=== PATIENT | male | born 1940 | race Caucasian/White ===

== ENCOUNTER → 2018-03-26 11:16 | Outpatient (CLI) | payer OTHER, SELFPAY ==
--- NOTE | 2018-03-26 | DI.RAD.S_ITS ---
PROCEDURE: XR CHEST 2V INDICATIONS: DYSPNEA TECHNIQUE: 2 views of the chest were acquired. COMPARISON: [facility], , CHEST 2 VIEW, 07/13/2008, 11:32. [facility], , L-SPINE 2-3 VIEWS, 06/20/2017, 11:29. FINDINGS: Surgical changes and devices: None. Lungs and pleura: Left basilar densities likely scars or atelectasis. Lungs are otherwise clear. No pleural effusions or pneumothorax. Mediastinum: Mediastinal contours are normal. Heart size is normal. Bones and chest wall: No suspicious bony abnormalities. Soft tissues appear unremarkable. Degenerative changes in lumbar spine. Bilateral rotator cuff tendon anchors are noted. IMPRESSION: Left basilar scars or atelectasis. Dictated by: Alia Estrada M.D. on 03/26/2018 at 12:54 Approved by: Alia Estrada M.D. on 03/26/2018 at 12:55
[2018-03-26 12:17] LABS: Add Manual Diff / Slide Review NO; Basophils Percent Auto 0.5 % (0-2); Eosinophils Percent Auto 1.4 % (2-4); Hematocrit 43.8 % (41-53); Lymphocytes Percent Auto 19.1 % (25-40); Mean Corpuscular HGB Conc 34.2 % (30-36); Mean Corpuscular Volume 93.6 fL (80-100); Monocytes Percent Auto 9.1 % (3-14); Neutrophils Absolute Auto 7300 /uL (3000-5900); Neutrophils Percent Auto 69.9 % (50-75); Platelet Count 272 X10^3/uL (150-400); Red Blood Cell Count 4.68 X10^6/uL (4.5-5.9); Red Cell Distribution Width 13.7 % (11.6-14.8); White Blood Cell Count 10.5 X10^3/uL (4.5-11.0)
[2018-03-26 12:36] LABS: B Type Natriuretic Peptide < 29.4 (<100)
[2018-03-26 13:16] LABS: TSH w/ Reflex to FT4 1.35 uIU/mL (0.47-4.68)
== END ==
PROVIDERS: Visit Provider Internal Medicine
DX: R06.09 Other forms of dyspnea (principal)
CPT/HCPCS: 36415; 71046; 83880; 84443; 85025

== ENCOUNTER → 2018-04-04 10:04 | Outpatient (CLI) | payer OTHER, SELFPAY ==
--- NOTE | 2018-04-04 | DI.CT.S_ITS ---
PROCEDURE: CT CHEST HIGH RESOLUTION INDICATIONS: DYSPNEA FOR ONE YEAR TECHNIQUE: Noncontrast 1.0 and 5.0 mm thick contiguous axial sections from the pulmonary apex to the posterior costophrenic angles, with 7 mm thick coronal and sagittal MIP reformats. 1 mm thick dynamic expiratory images acquired through the upper, mid, and lower lungs. 1.0 mm thick axial sections acquired from the jaclyn to the posterior costophrenic angles in the prone end-inspiration position. For radiation dose reduction, the following was used: automated exposure control, adjustment of mA and/or kV according to patient size. COMPARISON: None. FINDINGS: Image quality: Excellent. No acute consolidation. There is scattered atelectasis and/or scarring No pleural effusions or pneumothorax. No honeycombing is seen. There are calcified pleural plaques bilaterally Central airways appear grossly patent. Heart size is normal Coronary artery calcifications are present. Thoracic aorta is normal in size and great vessels are grossly unremarkable. Thyroid is grossly unremarkable, except for a nonspecific 3 mm right lobe calcification No pathologically enlarged mediastinal lymph nodes. Nonspecific paratracheal calcified lymph nodes No hilar lymphadenopathy seen by size criteria. Axillary lymph nodes appear within normal limits bilaterally Thoracic aorta is normal in size and great vessels are grossly unremarkable. Visualized upper abdominal solid organs and bowel loops appear normal except there may be cirrhotic contour of the liver. Please correlate with LFTs Bones appear intact. No suspicious bone lesion. 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 Elsewhere, scattered mild atelectasis and scarring. No evidence of honeycombing seen. Coronary artery disease. Dictated by: Adrian London M.D. on 04/04/2018 at 11:48 Approved by: Adrian London M.D. on 04/04/2018 at 11:57
== END ==
PROVIDERS: Visit Provider Internal Medicine
DX: J98.4 Other disorders of lung (principal); R06.00 Dyspnea, unspecified; I25.10 Atherosclerotic heart disease of native coronary artery without angina pectoris
CPT/HCPCS: 71250

== ENCOUNTER → 2018-04-05 10:41 | Outpatient (CLI) | payer OTHER, SELFPAY ==
--- NOTE | 2018-04-05 | DI.ECHO.S_ITS ---
[facility] +---------+ : : [address] : : : : [place] : : : : [id number] : : : : Phone: [phone]+ Echocardiogram Report + + :Name: KRZYSZTOF BARCENAS Study Date: 04/05/2018 Height: 69 in : :[facility] Exam Location: IS Weight: 212 lb : : Gender: Male BSA: 2.1 m2 : :: 1940 Age: 77 yrs BP: 130/70 mmHg: :Reason For Study: CHF : :Ordering Physician: Dr. Thomas : :Vamshi Performed By: Bonita Leos : :Referring: CHRIS SEGOVIA : + + Interpretation Summary The left ventricle is normal in size. The ejection fraction is estimated to be 70-75%. The left ventricle is hyperdynamic. There is no echo evidence for significant left ventricular outflow tract obstruction. The right ventricle is grossly normal size. The right ventricular systolic function is normal. Heavy calcification of posterior mitral annulus. Restricted PMVL. The mitral valve mean gradient is 3 mmHg. There is mild mitral stenosis. Procedure: A two-dimensional transthoracic echocardiogram with color flow and Doppler was performed. The study quality was technically adequate. There is no prior echocardiogram noted for this patient. The patient was in normal sinus rhythm during the exam. Left Ventricle: The left ventricle is normal in size. There is normal left ventricular wall thickness. There is no echo evidence for significant left ventricular outflow tract obstruction. There is no thrombus. The ejection fraction is estimated to be 70-75%. The left ventricle is hyperdynamic. There are no focal wall motion abnormalities. Diastolic function could not be accurately assessed due to confounding valvular disease. Right Ventricle: The right ventricle is grossly normal size. The right ventricular systolic function is normal. Atria: The left atrium is moderately dilated. The right atrium is mildly dilated. A prominent eustachian valve is noted. There is no Doppler evidence for an interatrial shunt. Mitral Valve: Heavy calcification of posterior mitral annulus. restricted PMVL. Mild MS by pressure half time (135ms) and MVA (2.0cm^2). The mitral valve mean gradient is 3 mmHg. There is mild mitral stenosis. There is trace mitral regurgitation. Aortic Valve: The aortic valve is trileaflet. There is mild aortic valve sclerosis. The aortic valve opens well. No aortic regurgitation is present. Tricuspid Valve: The tricuspid valve is normal. Pulmonary artery pressures cannot be estimated because of the lack of a measurable TR jet velocity. There is trace tricuspid regurgitation. Pulmonic Valve: The pulmonic valve is not well seen, but is grossly normal. There is trace pulmonic regurgitation. Great Vessels: The aortic root is normal size. The ascending aorta is at the upper limits of normal in size. The aortic arch could not be visualized. The pulmonary is not well visualized. The IVC is of normal diameter and collapses greater than 50% with a sniff. This suggests a low right atrial pressure of 3 mm Hg. Pericardium/ Pleura There is no pericardial effusion. There is no pleural effusion. MMode/2D Measurements & Calculations LVIDd: 4.5 cm LVOT diam: 2.1 cm LVIDs: 3.0 cm Ao root diam: 3.7 cm FS: 32.5 % asc Aorta Diam: 3.7 cm EPSS: 0.40 cm IVSd: 0.75 cm LVPWd: 0.94 cm LV cristina. diameter/BSA (cm/m^2): 2.1 LV sys. diameter/BSA (cm/m^2): 1.4 LA A2 area: 26.7 cm2 RA long axis: 5.3 cm LA A4 area: 26.4 cm2 RA area: 17.0 cm2 LA length (vol): 6.1 cm RA vol: 46.0 ml LA vol: 97.4 ml RA : 21.7 ml/m2 LA vol index: 46.0 ml/m2 IVC diam: 1.6 cm RVD1 (basal): 4.3 cm RVD2 (mid): 2.6 cm TAPSE: 2.2 cm Doppler Measurements & Calculations Ao V2 max: 118.4 cm/sec LVOT Max Luis: 86.8 cm/sec Ao V2 mean: 79.3 cm/sec LV V1 max P.0 mmHg Ao max P.6 mmHg LV V1 VTI: 14.5 cm Ao mean P.9 mmHg DELANEY(I,D): 3.2 cm2 Ao V2 VTI: 16.1 cm DELANEY(V,D): 2.6 cm2 sev ratio: 0.90 DELANEY indexed to BSA (cm^2/m^2): 1.5 MV E max luis: 68.2 cm/sec PA V2 max: 81.2 cm/sec MV A max luis: 130.7 cm/sec PA V2 mean: 54.2 cm/sec MV E/A: 0.52 PA mean P.4 mmHg Med Peak E' Luis: 3.8 cm/sec PA pr(Accel): 34.1 mmHg E/E' med: 18.0 Lat Peak E' Luis: 4.9 cm/sec E/E' lat: 13.9 E/e' average: 15.9 MV dec time: 0.43 sec MVA(VTI): 2.0 cm2 MV V2 mean: 81.3 cm/sec MV mean P.1 mmHg MV V2 VTI: 25.1 cm Reading Physician:MAYNOR
== END ==
PROVIDERS: Visit Provider Internal Medicine
DX: I08.0 Rheumatic disorders of both mitral and aortic valves (principal); I50.9 Heart failure, unspecified
CPT/HCPCS: 93306

== ENCOUNTER → 2018-04-09 11:30 | Outpatient (CLI) | payer OTHER, SELFPAY ==
--- NOTE | 2018-04-12 07:57 | PM.PFT.1 ---
Pulmonary Function Test Referral & Results Date Patient Seen: 04/09/18 Requesting provider: William Bonds Indication: Asbestos exposure, restrictive lung disease, dyspnea Results: The spirometry demonstrates an FVC of 3.80 L which is 82% of predicted. The FEV1 was measured at 3.16 L which is 94% of predicted. The FEV1/FVC ratio was 83 which is 115% of predicted. Following the administration of bronchodilator there was no appreciable change. Lung volumes show an SVC of 4.41 L which is 90% of predicted. The diffusing capacity was measured at 22.76 which is 62% go to end of sentence my no hemoglobin of predicted. The maximum voluntary ventilation was normal Interpretation: This study demonstrates probably normal spirometry. The maybe a very slight reduction in lung volumes. There is a much more significant reduction in diffusing capacity suggesting significant disease at the capillary alveolar level.
== END ==
PROVIDERS: PCP Internal Medicine; Visit Provider Internal Medicine
DX: R06.00 Dyspnea, unspecified (principal); J98.8 Other specified respiratory disorders; Z77.090 Contact with and (suspected) exposure to asbestos
CPT/HCPCS: 94010; 94060; 94726; 94729

== ENCOUNTER → 2018-12-31 13:43 | Outpatient (CLI) | payer OTHER, SELFPAY ==
--- NOTE | 2018-12-31 13:54 | DI.CT.S_ITS ---
PROCEDURE: CT UE LT WO CON INDICATIONS: PAIN IN LEFT SHOULDER TECHNIQUE: Noncontrast 1-1.5 mm thick sections acquired from the acromioclavicular joint to the inferior scapula, with coronal and sagittal reformatting. COMPARISON: [facility] Outside Film, RG, SHOULDER MIN 2VW (LT), 10/30/2018, 14:33. FINDINGS: Image quality: Excellent. Bones: Severe glenohumeral degenerative joint disease, with chronic subchondral sclerosis, spurring and deformity. There are scattered calcific foci which could represent loose bodies/debris or dystrophic calcifications. Spondylitic changes seen in the visualized spine. No acute fracture identified. Severe AC joint degeneration also with periarticular dystrophic calcification. High riding appearance of the humeral head suggests chronic rotator cuff tear. Soft tissues: Incidentally noted left lung calcified pleural plaques. Surgical soft tissue anchors projecting in the humeral head. IMPRESSION: Left shoulder CT for preoperative planning purposes. Severe left shoulder degenerative joint disease as detailed above. 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 Dictated by: Adrian London M.D. on 12/31/2018 at 16:14 Approved by: Adrian London M.D. on 12/31/2018 at 16:18
== END ==
PROVIDERS: PCP Internal Medicine; Visit Provider Orthopaedic Surgery
DX: M25.512 Pain in left shoulder (principal); M19.012 Primary osteoarthritis, left shoulder; J92.9 Pleural plaque without asbestos
CPT/HCPCS: 73200

== ENCOUNTER → 2019-09-05 13:24 | Outpatient (CLI) | payer OTHER, SELFPAY ==
[2019-09-05 14:25] LABS: Add Manual Diff / Slide Review NO; Basophils Absolute Auto 0 /uL (0-100); Basophils Percent Auto 0.4 % (0-2); Eosinophils Absolute Auto 200 /uL (0-450); Eosinophils Percent Auto 1.8 % (2-4); Hematocrit 42.3 % (41-53); Hemoglobin 14.1 g/dL (13.5-17.5); Lymphocytes Absolute Auto 1900 /uL (1100-4500); Lymphocytes Percent Auto 16.6 % (25-40); Mean Corpuscular HGB Conc 33.4 % (30-36); Mean Corpuscular Hemoglobin 31.1 PG (26-34); Monocytes Absolute Auto 800 /uL (0-900); Monocytes Percent Auto 7.4 % (3-14); Neutrophils Absolute Auto 8200 /uL (1500-7000); Neutrophils Percent Auto 73.8 % (50-75); Platelet Count 246 X10^3/uL (150-400); Red Blood Cell Count 4.55 X10^6/uL (4.5-5.9); Red Cell Distribution Width 14.2 % (11.6-14.8); White Blood Cell Count 11.2 X10^3/uL (4.5-11.0)
[2019-09-05 14:47] LABS: Alanine Aminotransferase 17 IU/L (<50); Albumin 4.4 g/dL (3.5-5.0); Albumin Globulin Ratio 1.6 (1.0-2.8); Alkaline Phosphatase 76 U/L (38-126); Aspartate Aminotransferase 34 IU/L (17-59); BUN Creatinine Ratio 31.1 (6-22); Bilirubin Total 0.5 mg/dL (0.2-1.3); Blood Urea Nitrogen 28 mg/dL (9-20); Calcium 10.2 mg/dL (8.4-10.2); Carbon Dioxide 26 mmol/L (22-32); Chloride 105 mmol/L (98-107); Estimated Glomerular Filt Rate > 60.0 mL/min (>60); Globulin 2.8 g/dL (1.7-4.1); Glucose 108 mg/dL (80-110); HEMOLYSIS < 15 (0-50); Potassium 4.2 mmol/L (3.4-5.1); Sodium 140 mmol/L (137-145); Total Protein 7.2 g/dL (6.3-8.2)
[2019-09-05 14:48] LABS: Lithium < 0.2 mmol/L (0.6-1.2)
== END ==
PROVIDERS: PCP Internal Medicine; Referring Provider Internal Medicine; Visit Provider Internal Medicine
DX: M19.012 Primary osteoarthritis, left shoulder (principal); J61 Pneumoconiosis due to asbestos and other mineral fibers; F32.9 Major depressive disorder, single episode, unspecified
CPT/HCPCS: 36415; 80053; 80178; 85025

== ENCOUNTER → 2019-09-12 14:02 | Outpatient (CLI) | payer OTHER, SELFPAY ==
--- NOTE | 2019-09-12 14:04 | DI.RAD.S_ITS ---
PROCEDURE: XR KNEE RT 3V INDICATIONS: right knee pain TECHNIQUE: 3 views of the knee were acquired. COMPARISON: [facility], , KNEE 3V RIGHT, 12/13/2015, 14:46. FINDINGS: Bones: No fractures or dislocations. No suspicious bony lesions. Soft tissues: Chondrocalcinosis is present. Moderate narrowing of the medial joint space. Large joint effusion. IMPRESSION: Moderate right knee joint degeneration, which has progressed since 12/13/15 Large joint effusion Chondrocalcinosis Dictated by: Adrian London M.D. on 09/12/2019 at 15:55 Approved by: Adrian London M.D. on 09/12/2019 at 15:57
== END ==
PROVIDERS: PCP Internal Medicine; Referring Provider Physical Medicine & Rehabilitation; Visit Provider Physical Medicine & Rehabilitation
DX: M17.11 Unilateral primary osteoarthritis, right knee (principal); M25.461 Effusion, right knee; M11.261 Other chondrocalcinosis, right knee
CPT/HCPCS: 73562

== ENCOUNTER → 2019-11-10 13:39 | Outpatient (CLI) | payer OTHER, SELFPAY ==
--- NOTE | 2019-11-10 13:42 | DI.RAD.S_ITS ---
PROCEDURE: XR LUMBAR SPINE MIN 4V INDICATIONS: Right lower extremity pain status post lumbar fusion TECHNIQUE: 5 views of the lumbar spine were acquired. COMPARISON: [facility], , L-SPINE 2-3 VIEWS, 06/20/2017, 11:29. FINDINGS: Bones: 5 nonrib-bearing vertebrae are present. There is posterior fusion L4-5. Hardware is intact. There is grade 1/2 anterior listhesis of L4 on L5, unchanged. Severe multilevel disc and foraminal narrowing is present throughout the lumbar spine with severe foraminal narrowing from L3-4 through L5-S1. Significant anterior osteophytes are present most notable at L2-3.. No vertebral body compression fractures. No suspicious bony lesions. Soft tissues: Overlying bowel gas pattern is normal. No suspicious soft tissue calcifications. Oblique images: No pars defects. IMPRESSION: Unchanged improved lobe L4-5 fusion with significant multilevel degenerative change. Dictated by: Valerie Garrett M.D. on 11/10/2019 at 16:36 Approved by: Valerie Garrett M.D. on 11/10/2019 at 16:37
== END ==
PROVIDERS: PCP Internal Medicine; Referring Provider Physical Medicine & Rehabilitation; Visit Provider Physical Medicine & Rehabilitation
DX: M79.661 Pain in right lower leg (principal); M48.061 Spinal stenosis, lumbar region without neurogenic claudication; M48.07 Spinal stenosis, lumbosacral region; M17.11 Unilateral primary osteoarthritis, right knee; Z98.1 Arthrodesis status
CPT/HCPCS: 72110; 99213

== ENCOUNTER → 2020-07-17 12:03 | Outpatient (CLI) | payer OTHER, SELFPAY | PROVIDERS: PCP Internal Medicine; Visit Provider Physician Assistant | DX: L03.031 Cellulitis of right toe (principal) | CPT/HCPCS: 87070; 87077; 87147; 87186; 87205 ==

== ENCOUNTER → 2020-07-20 14:50 | Outpatient (ROUT) | payer OTHER, SELFPAY ==
[2020-07-20 15:15] LABS: Add Manual Diff / Slide Review NO; Basophils Absolute Auto 100 /uL (0-100); Basophils Percent Auto 0.8 % (0-2); Eosinophils Absolute Auto 300 /uL (0-450); Eosinophils Percent Auto 3.1 % (2-4); Hematocrit 42.3 % (41-53); Hemoglobin 14.1 g/dL (13.5-17.5); Lymphocytes Absolute Auto 2000 /uL (1100-4500); Mean Corpuscular HGB Conc 33.4 % (30-36); Mean Corpuscular Hemoglobin 31.7 PG (26-34); Monocytes Absolute Auto 800 /uL (0-900); Monocytes Percent Auto 8.6 % (3-14); Neutrophils Absolute Auto 6100 /uL (1500-7000); Neutrophils Percent Auto 65.5 % (50-75); Platelet Count 288 X10^3/uL (150-400); Red Blood Cell Count 4.45 X10^6/uL (4.5-5.9); Red Cell Distribution Width 14.4 % (11.6-14.8); White Blood Cell Count 9.3 X10^3/uL (4.5-11.0)
[2020-07-20 15:26] LABS: Lithium 0.3 mmol/L (0.6-1.2)
[2020-07-20 15:31] LABS: Alanine Aminotransferase 18 IU/L (<50); Albumin 4.3 g/dL (3.5-5.0); Albumin Globulin Ratio 1.7 (1.0-2.8); Alkaline Phosphatase 74 U/L (38-126); Aspartate Aminotransferase 31 IU/L (17-59); BUN Creatinine Ratio 31.3 (6-22); Bilirubin Total 0.7 mg/dL (0.2-1.3); Blood Urea Nitrogen 26 mg/dL (9-20); Calcium 9.8 mg/dL (8.4-10.2); Carbon Dioxide 31 mmol/L (22-32); Chloride 104 mmol/L (98-107); Estimated Glomerular Filt Rate > 60.0 mL/min (>60); Globulin 2.5 g/dL (1.7-4.1); Glucose 100 mg/dL (80-110); HEMOLYSIS < 15 (0-50); Potassium 4.3 mmol/L (3.4-5.1); Sodium 138 mmol/L (137-145); Total Protein 6.8 g/dL (6.3-8.2)
[2020-07-20 15:38] LABS: NT-proBNP (BNP-Adult 18+) 81 pg/mL (<450)
== END ==
PROVIDERS: PCP Internal Medicine; Visit Provider Internal Medicine
DX: E78.00 Pure hypercholesterolemia, unspecified (principal); R60.9 Edema, unspecified; Z51.81 Encounter for therapeutic drug level monitoring
CPT/HCPCS: 80053; 80178; 83880; 85025

== ENCOUNTER → 2020-07-22 14:40 | Outpatient (CLI) | payer OTHER, SELFPAY ==
--- NOTE | 2020-07-22 14:42 | DI.US.S_ITS ---
PROCEDURE: US PERIPH VENOUS LOW EXTREM LT INDICATIONS: Localized swelling, mass and lump, left lower limb TECHNIQUE: Real-time imaging, as well as color and pulse Doppler interrogation, were performed of the lower extremity deep veins from the inguinal ligament to the popliteal fossa. COMPARISON: None. FINDINGS: The common femoral, femoral and popliteal veins are normally compressible, and free of intraluminal thrombus. Color and pulse Doppler demonstrate normal phasic intraluminal flow. There is normal augmentation response to distal compression maneuver. Popliteal cyst measuring 17.2 x 11.0 x 1.7 cm. IMPRESSION: 1. No deep venous thrombosis identified within the left lower extremity. 2. 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 Dictated by: Severiano Roth [facility] Interpreted: Brian Akhtar MD on 07/22/2020 at 15:58 Approved by: Brian Akhtar M.D. on 07/22/2020 at 17:09
== END ==
PROVIDERS: PCP Internal Medicine; Referring Provider Internal Medicine; Visit Provider Internal Medicine
DX: M71.22 Synovial cyst of popliteal space [Baker], left knee (principal)
CPT/HCPCS: 93971

== ENCOUNTER → 2020-07-26 11:01 | Outpatient (CLI) | payer OTHER, SELFPAY ==
[2020-07-26 12:52] LABS: COVID19 -Nasal RAPID Negative (Negative)
== END ==
PROVIDERS: PCP Internal Medicine; Visit Provider Physician Assistant
DX: Z20.822 Contact with and (suspected) exposure to COVID-19 (principal)
CPT/HCPCS: 87635; C9803

== ENCOUNTER 2020-07-27 08:38 | Day surgery (SDC) | payer OTHER, SELFPAY | END 2020-07-27 08:40 | disposition home or self-care (01) | LOC: OR 08:42 | PROVIDERS: PCP Internal Medicine; Referring Provider Ophthalmology; Visit Provider Ophthalmology | DX: H25.12 Age-related nuclear cataract, left eye (principal) | CPT/HCPCS: J2250 ==

== ENCOUNTER → 2020-08-27 18:44 | Outpatient (ROUT) | payer OTHER, SELFPAY ==
[2020-08-27 19:13] LABS: Add Manual Diff / Slide Review NO; Basophils Absolute Auto 100 /uL (0-100); Basophils Percent Auto 0.8 % (0-2); Eosinophils Absolute Auto 200 /uL (0-450); Eosinophils Percent Auto 2.6 % (2-4); Hematocrit 42.1 % (41-53); Hemoglobin 14.2 g/dL (13.5-17.5); Lymphocytes Absolute Auto 1500 /uL (1100-4500); Lymphocytes Percent Auto 17.1 % (25-40); Mean Corpuscular HGB Conc 33.7 % (30-36); Mean Corpuscular Hemoglobin 32.2 PG (26-34); Mean Corpuscular Volume 95.4 fL (80-100); Monocytes Absolute Auto 700 /uL (0-900); Monocytes Percent Auto 8.1 % (3-14); Neutrophils Absolute Auto 6400 /uL (1500-7000); Neutrophils Percent Auto 71.4 % (50-75); Platelet Count 237 X10^3/uL (150-400); Red Blood Cell Count 4.42 X10^6/uL (4.5-5.9); Red Cell Distribution Width 14.1 % (11.6-14.8); White Blood Cell Count 8.9 X10^3/uL (4.5-11.0)
[2020-08-27 19:17] LABS: BUN Creatinine Ratio 37.2 (6-22); Blood Urea Nitrogen 29 mg/dL (9-20); C-Reactive Protein Quant < 0.5 mg/dL (<1.0); Calcium 10.1 mg/dL (8.4-10.2); Carbon Dioxide 26 mmol/L (22-32); Chloride 105 mmol/L (98-107); Estimated Glomerular Filt Rate > 60.0 mL/min (>60); Glucose 107 mg/dL (80-110); HEMOLYSIS 27 (0-50); Sodium 138 mmol/L (137-145)
[2020-08-27 19:52] LABS: Erythrocyte Sedimentation Rate 6 MM/HR (0-15)
== END ==
PROVIDERS: Family Provider Internal Medicine; PCP Internal Medicine; Visit Provider Internal Medicine
DX: I73.9 Peripheral vascular disease, unspecified (principal); L03.031 Cellulitis of right toe
CPT/HCPCS: 80048; 85025; 85651; 86140

== ENCOUNTER 2020-08-31 15:11 | Emergency (ER) | payer OTHER, SELFPAY ==
[2020-08-31 15:38] VITALS: BP 160/72; PULSE 75; RESP 18; TEMP 36.4; O2SAT 98
--- NOTE | 2020-08-31 15:46 | DI.RAD.S_ITS ---
PROCEDURE: XR HIP W PEL IF DONE RT 2V INDICATIONS: unable to bear wt rt hip heard a pop TECHNIQUE: AP pelvis with lateral view(s) of the right hip(s). COMPARISON: None. FINDINGS: Bones: No fractures or dislocations. Pelvic ring appears intact. No suspicious bony lesions. Lower lumbar spine laminectomy and fusion. Mild degenerative joint disease in hips bilaterally. Soft tissues: The visualized bowel gas pattern is normal. No suspicious soft tissue calcifications. IMPRESSION: No acute osseous abnormalities. Dictated by: Alia Estrada M.D. on 08/31/2020 at 16:44 Approved by: Alia Estrada M.D. on 08/31/2020 at 16:45
--- NOTE | 2020-08-31 19:54 | ED_ITS ---
HPI - Extremity Injury (Lower) General Chief Complaint: Extremity Injury, Lower Stated Complaint: RIGHT SIDE SOMETHING POPED UNABLE TO BARE WIEGHT Time Seen by Provider: 08/31/20 19:54 Source: patient and family () Mode of arrival: Wheelchair Limitations: no limitations History of Present Illness HPI Narrative: This is an 79-year-old male who comes emergency department with complaint of right-sided pain in his ischium region and a little bit more medial in the soft tissue. Patient states today he was bending over picking up about 50 lb sac and garden when he felt a pop and had pain in that region he has not appreciated any swelling or bruising. He continues to have pain with any sort of weight-bearing. Patient denies any weakness otherwise. He has chronic numbness in his lower extremities but has not appreciated any new tingling or numbness. Patient states he is on medication for depression, he denies any other medical issues. He states he has had right knee surgery in the past and is scheduled to have left knee surgery in the future but denies other surgical history. He is not on any anticoagulant. He denies any other symptoms while he is lying flat. He does appreciate that he has increased pain when he attempts to lift his left or contralateral leg. Related Data Home Medications Medication Instructions Recorded Confirmed acetaminophen 500 mg tablet 1,000 mg PO TID PRN tab 09/15/19 07/27/20 omeprazole 20 mg capsule,delayed 20 mg PO BID cap 11/19/19 07/27/20 release Previous Rx's Medication Instructions Recorded lithium carbonate 150 mg capsule 300 mg PO HS #180 cap 10/03/19 duloxetine 30 mg capsule,delayed See Rx Instructions PO DAILY #270 03/10/20 release cap lamotrigine 100 mg tablet 150 mg PO QDAY #135 tab 04/21/20 diclofenac sodium 75 mg See Rx Instructions .ROUTE 08/02/20 tablet,delayed release .COMPLEX #180 tab Allergies Allergy/AdvReac Type Severity Reaction Status Date / Time No Known Drug Allergies Allergy Verified 07/17/20 11:46 Review of Systems Review of Systems ROS Unobtainable: All systems reviewed & are unremarkable except as noted in HPI and below Patient History Medical History DJD of both shoulders Paronychia of toe Right knee DJD Surgical History History of carpal tunnel repair History of lumbar fusion Status post coronary artery bypass graft Status post rotator cuff repair Family History Mother Osteoporosis Social History Smoking Status: Never smoker Smoking Status: Never smoker Exam Narrative Exam Narrative: GENERAL: Alert and oriented x three, well-nourished, well- appearing elderly male in mild distress HEENT: Head normocephalic, atraumatic, EOMI, pupils reactive, face symmetric, moist mucous membranes NECK: Supple, full range of motion CARDIOVASCULAR: Regular rate and rhythm without murmurs, rubs or gallops. RESPIRATORY: Breath sounds equal bilaterally, no wheezes rales or rhonchi. ABDOMEN: Soft, nontender. Normoactive bowel sounds all 4 quadrants. No guarding or rebound, rigidity, no mass : No CVA tenderness EXTREMITIES: Normal range of motion, patient does not have any appreciable weakness with extension, flexion, internal external rotation. He does have tenderness with palpation of the right ischium and a little bit more medially in the soft tissue. There does feel to be a little bit tightness. Patient has 2+ pulses. He has normal sensation without any other color changes. No ecchymosis. No clubbing or edema. Neurovascularly intact NEUROLOGICAL: Cranial nerves II through XII grossly intact. Moving all extremities SKIN: Warm, dry, no petechiae, no rashes or lesions. Initial Vital Signs Initial Vital Signs: Vital Signs Temperature 97.6 F 08/31/20 15:38 Pulse Rate 75 08/31/20 15:38 Respiratory Rate 18 08/31/20 15:38 Blood Pressure 160/72 H 08/31/20 15:38 Pulse Oximetry 98 08/31/20 15:38 Course Orders Ordered: Discontinued Medications Acetaminophen (Acetaminophen 325 Mg Tablet) 650 mg PO NOW ONE Stop: 08/31/20 20:04 Last Admin: 08/31/20 20:25 Dose: Not Given Documented by: BRITTANY Acetaminophen (Acetaminophen 325 Mg Tablet) 975 mg PO TID PRN PRN Reason: Pain (Scale Score 1-3) Non-Formulary Medication (Acetaminophen [Tylenol Extra Strength]) 1,000 mg PO TID PRN PRN Reason: Pain (Scale Score 1-3) Consultations Consultation #1: Dr. Candelaria, plan for follow up outpatient. No additional imaging needed at this time. Patient can weight bear as tolerated. Time: 20:03 Vital Signs Vital signs: Vital Signs - 8 hr 08/31/20 15:38 Temperature 97.6 F Pulse Rate 75 Respiratory Rate 18 Blood Pressure 160/72 H Pulse Oximetry 98 [facility] - Extremity Injury (Lower) Imaging Data Extremity x-ray #1: Radiologist's Impression: [address] [id number] ReportSigned Patient: Gregg Lopez NMR#: [id number]: 1940Acct:[id number]/Sex: 79 / MDate of Service: 08/31/20Loc: EDAccession Number: [id number] Procedure: XR hip w pel if done RT 2V Ordering Provider: Ervin Addison MD PROCEDURE: XR HIP W PEL IF DONE RT 2V INDICATIONS: unable to bear wt rt hip heard a pop TECHNIQUE: AP pelvis with lateral view(s) of the right hip(s). COMPARISON: None. FINDINGS: Bones: No fractures or dislocations. Pelvic ring appears intact. No lonny picious bony lesions. Lower lumbar spine laminectomy and fusion. Mild degenerative joint disease in hips bilaterally. Soft tissues: The visualized bowel gas pattern is normal. No suspicious soft tissue calcifications. IMPRESSION: No acute osseous abnormalities. Dictated by: Alia Estrada M.D. on 08/31/2020 at 16:44 Approved by: Alia Estrada M.D. on 08/31/2020 at 16:45 [facility] Narrative Medical decision making narrative: 79-year-old male comes in with right ischial pain after a cough while lifting about 50 lb bag. Suspect he has either a muscle tear although he has full range of motion with good strength on exam so may be more of a ligamentous or tendon injury for a partial tear. Discussed with Orthopedic surgery plan for follow-up outpatient. Plan for walker here in the department, patient defers any other pain medications besides Tylenol. Return precautions discussed. Patient does have his orthopedic surgeon he has been following with for his knees so he may follow up with them instead he has a plan to call them tomorrow. Discharge Plan Departure Patient Disposition: Home Clinical Impression: Right-sided ischial pain Activity Restrictions/Additional Instructions: Follow up with orthopedic surgery this week. Call tomorrow for an appointment. You may follow-up with Orthopedic surgery below or your personal orthopedic surgeon, whom every prefer. You may weight bear as tolerated use a walker or crutches as needed. Take Tylenol, you may take up to a 1000 mg every 8 hours as needed for pain. You may continue home medications as prescribed. Return for new weakness, loss of sensation, rapidly worsening or severe pain, new bruising or ecchymosis particularly that is enlarging quickly, lightheadedness or passing out, discoloration of your legs which is pallor or cyanosis or other new or concerning symptoms. Prescriptions: No Action lithium carbonate 150 mg capsule 300 mg PO HS Qty: 180 RF: 1 duloxetine 30 mg capsule,delayed release(DR/EC) See Rx Instructions PO DAILY Qty: 270 RF: 1 lamotrigine [Lamictal] 100 mg tablet 150 mg PO QDAY Qty: 135 RF: 2 diclofenac sodium 75 mg tablet,delayed release (DR/EC) See Rx Instructions .ROUTE .COMPLEX Qty: 180 RF: 0 acetaminophen [Tylenol Extra Strength] 500 mg tablet 1,000 mg PO TID PRN (Reason: Pain (Scale Score 1-3)) RF: 0 omeprazole 20 mg capsule,delayed release(DR/EC) 20 mg PO BID RF: 0 Referrals: William Bonds MD [Primary Care Provider] -
== END 2020-08-31 20:26 | disposition home or self-care (01) ==
PROVIDERS: Emergency Provider Emergency Medicine; Family Provider Internal Medicine; PCP Internal Medicine
DX: M25.551 Pain in right hip (principal)
CPT/HCPCS: 73502; 99283

== ENCOUNTER → 2020-09-30 10:00 | Outpatient (CLI) | payer OTHER, SELFPAY ==
[2020-09-30 10:54] LABS: Erythrocyte Sedimentation Rate 5 MM/HR (0-15)
[2020-09-30 10:56] LABS: C-Reactive Protein Quant < 0.5 mg/dL (<1.0)
== END ==
PROVIDERS: Family Provider Internal Medicine; PCP Internal Medicine; Referring Provider Internal Medicine; Visit Provider Internal Medicine
DX: L03.031 Cellulitis of right toe (principal)
CPT/HCPCS: 36415; 85651; 86140

== ENCOUNTER 2021-07-10 19:19 | Emergency (ER) | payer OTHER, SELFPAY ==
[2021-07-10] VITALS (11 sets, daily range): BP systolic 165–194; BP diastolic 58–124; PULSE 67–81; RESP 16; TEMP 36.8; O2SAT 97–99; BMI 29.7
--- NOTE | 2021-07-10 19:33 | DI.CT.S_ITS ---
PROCEDURE: CT HEAD/BRAIN WO CON INDICATIONS: fall hit head TECHNIQUE: Noncontrast 4.5 mm thick angled axial sections acquired from the foramen magnum to the vertex, with coronal and sagittal reformats. For radiation dose reduction, the following was used: automated exposure control, adjustment of mA and/or kV according to patient size. COMPARISON: None. FINDINGS: Image quality: Excellent. CSF spaces: Basal cisterns are patent. No extra-axial fluid collections. The ventricles are symmetric in size and shape. Brain: No intracranial bleeds or masses. There is cerebral volume loss for age, with resultant ventricular and sulcal prominence. There are periventricular and deep white matter chronic small vessel ischemic changes. There is intracranial internal carotid artery atherosclerosis. Skull and face: Calvarium and visualized facial bones appear intact, without suspicious lesions. Probable nasal bone fracture with a small amount of air anterior to the nasal bone to the left of midline. Small left forehead hematoma. Sinuses: Visualized sinuses and mastoids are clear. IMPRESSION: 1. Probable nasal bone fracture. 2. Negative for acute stroke, hemorrhage, or mass. No evidence of significant intracranial sequelae of acute trauma. Dictated by: Nash Elliott M.D. on 07/10/2021 at 20:01 Approved by: Nash Elliott M.D. on 07/10/2021 at 20:03
--- NOTE | 2021-07-10 19:33 | DI.CT.S_ITS ---
PROCEDURE: CT CERVICAL SPINE WO CON INDICATIONS: fall with neck pain TECHNIQUE: Noncontrast 3 mm thick sections acquired from the skull base to the T4 level. Sagittal and coronal reformats were then constructed. For radiation dose reduction, the following was used: automated exposure control, adjustment of mA and/or kV according to patient size. COMPARISON: None. FINDINGS: Image quality: Excellent. Bones: No fractures or dislocations. Visualized superior ribs are intact. Advanced cervical spondylitic change. There is a sizable pannus at the anterior C1-C2 articulation. This does not result in significant canal stenosis. There is trace degenerative anterolisthesis of C2 on C3, measuring 4 mm, with anterior disc space widening possibly indicating anterior ligamentous laxity. Degenerative anterolisthesis of C3 on C4 measures 6 mm. There is and unroofed mild disc protrusion. There is canal stenosis at this level, underestimated on axial image plane. There is trace degenerative retrolisthesis of C4 on C5 with associated disc osteophyte complex resulting in canal stenosis. There is posterior disc osteophyte complex at C5-C6 with canal stenosis. There is mild degenerative anterolisthesis of C7 on T1. There is significant multilevel bilateral foraminal narrowing, including high-grade left foraminal stenosis C3-C4. There is extensive multilevel facet arthropathy. Soft tissues: Prevertebral soft tissues are normal in thickness. No paravertebral hematomas. No apical pneumothoraces. IMPRESSION: 1. No acute cervical fracture or dislocation is identified. 2. Very advanced cervical spondylitic change. Findings include multilevel degenerative anterolisthesis or retrolisthesis depending on the level. There is a question of anterior ligamentous laxity at C2-C3. There is multilevel canal stenosis and significant multilevel foraminal stenosis. There is advanced multilevel facet arthropathy. Comment: If this patient has any neurological deficit which is felt to be secondary to the acute trauma, consider cervical spine MRI. Dictated by: Nash Elliott M.D. on 07/10/2021 at 20:04 Approved by: Nash Elliott M.D. on 07/10/2021 at 20:10
[2021-07-10 19:41] LABS: Add Manual Diff / Slide Review NO; Basophils Absolute Auto 100 /uL (0-100); Basophils Percent Auto 1.2 % (0-2); Eosinophils Absolute Auto 200 /uL (0-450); Eosinophils Percent Auto 2.4 % (2-4); Lymphocytes Absolute Auto 2300 /uL (1100-4500); Lymphocytes Percent Auto 22.4 % (25-40); Mean Corpuscular HGB Conc 34.1 % (30-36); Mean Corpuscular Hemoglobin 31.3 PG (26-34); Mean Corpuscular Volume 91.7 fL (80-100); Monocytes Absolute Auto 1000 /uL (0-900); Monocytes Percent Auto 9.7 % (3-14); Neutrophils Absolute Auto 6600 /uL (1500-7000); Neutrophils Percent Auto 64.3 % (50-75); Platelet Count 249 X10^3/uL (150-400); Red Blood Cell Count 4.47 X10^6/uL (4.5-5.9); Red Cell Distribution Width 14.1 % (11.6-14.8); White Blood Cell Count 10.2 X10^3/uL (4.5-11.0)
[2021-07-10 19:47] LABS: BUN Creatinine Ratio 30.5 (6-22); Blood Urea Nitrogen 29 mg/dL (9-20); Calcium 10.1 mg/dL (8.4-10.2); Carbon Dioxide 28 mmol/L (22-32); Chloride 104 mmol/L (98-107); Estimated Glomerular Filt Rate > 60.0 mL/min (>60); Glucose 114 mg/dL (80-110); HEMOLYSIS 22 (0-50); Potassium 3.8 mmol/L (3.4-5.1); Sodium 137 mmol/L (137-145)
--- NOTE | 2021-07-10 20:25 | ED.FALL ---
HPI - Fall General Chief Complaint: Fall Stated Complaint: GLF Time Seen by Provider: 07/10/21 19:32 Source: patient and EMS Mode of arrival: EMS History of Present Illness HPI Narrative: Patient is a 80-year-old male initially reported to be on anticoagulation but after arrival stated that he is not on blood thinners here for evaluation of a fall. Patient was leaving a local restaurant when it appears that he tripped over a rug that was on the ground. He did fall forward hitting his face. He did arrive by EMS. He was in a cervical collar been on a backboard. He reports cuts to his face and forehead. He reports no other injuries. No upper nor lower extremity injuries. No tingling. Does not appear there was any loss of consciousness. No prodrome symptoms. Related Data Home Medications Medication Instructions Recorded Confirmed acetaminophen 500 mg tablet 1,000 mg PO TID PRN tab 09/15/19 07/27/20 (Tylenol Extra Strength) omeprazole 20 mg capsule,delayed 20 mg PO BID cap 11/19/19 07/27/20 release Previous Rx's Medication Instructions Recorded diclofenac sodium 75 mg See Rx Instructions .ROUTE 10/27/20 tablet,delayed release .COMPLEX #180 tab lamotrigine 100 mg tablet 150 mg PO QDAY #135 tab 10/28/20 (Lamictal) duloxetine 30 mg capsule,delayed See Rx Instructions PO DAILY #270 03/14/21 release cap lithium carbonate 150 mg capsule 300 mg PO HS #180 cap 03/14/21 Allergies Allergy/AdvReac Type Severity Reaction Status Date / Time No Known Drug Allergies Allergy Verified 07/17/20 11:46 Review of Systems Constitutional Constitutional: Denies frequent falls Eyes Eyes: Denies change in vision ENT Ears, Nose, Mouth, and Throat: Denies vertigo and Denies dizziness Comments: No dental complaint Cardiovascular Cardiovascular: Denies chest pain and Denies dyspnea Respiratory Respiratory: Denies dyspnea Gastrointestinal Gastrointestinal: Denies abdominal pain Musculoskeletal Musculoskeletal: Reports system reviewed and no additional complaints, except as documented, Denies numbness and Denies tingling Integumentary/Breasts Skin/Breast: Reports system reviewed and no additional complaints, except as documented Neurologic Neurologic: Denies vertigo, Denies dizziness, Denies frequent falls, Denies numbness and Denies tingling Hematologic/Lymphatic On Anticoagulants: No Allergic/Immunologic Allergic/Immunologic: Reports system reviewed and no additional complaints, except as documented Patient History Medical History DJD of both shoulders Paronychia of toe Right knee DJD Surgical History History of carpal tunnel repair History of lumbar fusion Status post coronary artery bypass graft Status post rotator cuff repair Family History Mother Osteoporosis Social History Smoking Status: Never smoker Smoking Status: Never smoker alcohol intake frequency: 0-2 drinks per day Substance Use Type: does not use Exam Initial Vital Signs Initial Vital Signs: Vital Signs Pulse Rate 77 07/10/21 19:25 Respiratory Rate 16 07/10/21 19:25 Blood Pressure 165/58 H 07/10/21 19:25 Pulse Oximetry 97 07/10/21 19:25 Const General: cooperative and comfortable HENMT Head: normal to inspection and normocephalic Nose: external nose normal, No epistaxis and No nasal discharge Resp Effort & Inspection: normal respiratory effort Auscultation: clear to auscultation bilaterally Cardio Rate: regular rate Rhythm: regular rhythm GI Inspection: normal to inspection Skin Other: Patient with a stellate abrasion to the left forehead. He has a linear laceration over the bridge of his nose. Other smaller abrasions and smaller lacerations on his nose and face. Has a 1 cm laceration left upper lip that does not cross the vermilion border. Neuro General: patient alert, patient awake, patient oriented x3 and moves all extremities Speech: speech normal Motor: muscle tone normal throughout Sensory Exam: no sensory deficits noted Extrem General: normal to inspection and capillary refill normal Psych Appearance: grossly normal and well kempt Procedures Laceration Repair Laceration 1: Site: face (Bridge of nose) Size (cm): 1 Description: linear Depth: simple, single layer Local Anesthetic: lidocaine 1% and with bicarb Amount of anesthesia used (mL): 3 Pre-repair: wound explored and deep structures intact Skin layer closed with: other (Chromic) Size (cm): 5-0 Number of sutures: 3 Technique: simple, interrupted Laceration 2: Site: lip Side (If applicable): left Size (cm): 1 Description: linear Depth: simple, single layer Local Anesthetic: lidocaine 1% and with bicarb Amount of anesthesia used (mL): 3 Pre-repair: wound explored Skin layer closed with: other (Chromic) Number of sutures: 2 Technique: simple, interrupted Scores GCS [place] coma scale eye opening: Spontaneous [place] coma scale verbal response: Orientated [place] coma scale motor response: Obey commands [place] coma scale total score: 15 Course Orders Ordered: ED Orders 07/10/21 19:15 Basic Metabolic Panel Stat Complete Blood Count AUTO DIFF Stat 07/10/21 19:33 CT cervical spine wo con Stat CT head/brain wo con Stat EKG-12 Lead Stat Discontinued Medications Bacitracin (Bacitracin Oint 0.9 Gm Pckt) 1 applic TOP NOW ONE Stop: 07/10/21 20:45 Last Admin: 07/10/21 20:58 Dose: 1 applic Documented by: KEN Diphtheria/Tetanus/Acell Pertussis (Tet,Diph,Pertuss(Acell),Vac/Pf 0.5 Ml Syringe) 0.5 ml IM .ONCE ONE Stop: 07/10/21 20:53 Last Admin: 07/10/21 20:58 Dose: 0.5 ml Documented by: KEN Lidocaine/Sodium Bicarbonate (Lido 1%/Sod Bicarb 8.4% (10ml) 10 Ml Syringe) 10 ml INJ NOW ONE Stop: 07/10/21 20:45 Last Admin: 07/10/21 20:59 Dose: 10 ml Documented by: KEN Vital Signs Vital signs: Vital Signs - 8 hr 07/10/21 20:30 07/10/21 20:31 07/10/21 20:42 Pulse Rate 72 Blood Pressure 173/124 H 184/110 H Pulse Oximetry 98 99 07/10/21 21:00 Pulse Rate 67 Blood Pressure 188/105 H Pulse Oximetry 97 MDM - Fall Lab Data Attestation: I reviewed the patient's lab results. Result diagrams: 07/10/21 19:15 07/10/21 19:15 Labs: Lab Results 07/10/21 07/10/21 Range/Units 19:15 19:15 WBC 10.2 (4.5-11.0) X10^3/uL RBC 4.47 L (4.5-5.9) X10^6/uL Hgb 14.0 (13.5-17.5) g/dL Hct 41.0 (41-53) % MCV 91.7 (80-100) fL MCH 31.3 (26-34) PG MCHC 34.1 (30-36) % RDW 14.1 (11.6-14.8) % Plt Count 249 (150-400) X10^3/uL Neut % (Auto) 64.3 (50-75) % Lymph % (Auto) 22.4 L (25-40) % [place] % (Auto) 9.7 (3-14) % Eos % (Auto) 2.4 (2-4) % Baso % (Auto) 1.2 (0-2) % Neut # (Auto) 6600 (8580-9648) /uL Lymph # (Auto) 2300 (8057-7613) /uL [place] # (Auto) 1000 H (0-900) /uL Eos # (Auto) 200 (0-450) /uL Baso # (Auto) 100 (0-100) /uL Sodium 137 (137-145) mmol/L Potassium 3.8 (3.4-5.1) mmol/L Chloride 104 (98-107) mmol/L Carbon Dioxide 28 (22-32) mmol/L BUN 29 H (9-20) mg/dL Creatinine 0.95 (0.66-1.25) mg/dL Estimated GFR > 60.0 (>60) mL/min BUN/Creatinine Ratio 30.5 H (6-22) Glucose 114 H (80-110) mg/dL Calcium 10.1 (8.4-10.2) mg/dL Imaging Data CT - cervical spine: Radiologist's Impression: [address] [address] [address] Scan Report Signed Patient: Gregg Lopez MR#: [id number] : 1940 Acct:[id number] Age/Sex: 80 / M Date of Service: 07/10/21 Loc: ED Accession Number: [id number] ?? Procedure: CT cervical spine wo con Ordering Provider: Lambert Do D.O. PROCEDURE:? CT CERVICAL SPINE WO CON ? INDICATIONS:? fall with neck pain ? TECHNIQUE:? Noncontrast 3 mm thick sections acquired from the skull base to the T4 level.? Sagittal and coronal reformats were then constructed.? For radiation dose reduction, the following was used:? automated exposure control, adjustment of mA and/or kV according to patient size.? ? COMPARISON:? None. ? FINDINGS:? Image quality:? Excellent.? ? Bones:? No fractures or dislocations.? Visualized superior ribs are intact.? Advanced cervical spondylitic change.? There is a sizable pannus at the anterior C1-C2 articulation.? This does not result in significant canal stenosis.? There is trace degenerative anterolisthesis of C2 on C3, measuring 4 mm, with anterior disc space widening possibly indicating anterior ligamentous laxity.? Degenerative anterolisthesis of C3 on C4 measures 6 mm.? There is and unroofed mild disc protrusion.? There is canal stenosis at this level, underestimated on axial image plane.? There is trace degenerative retrolisthesis of C4 on C5 with associated disc osteophyte complex resulting in canal stenosis.? There is posterior disc osteophyte complex at C5-C6 with canal stenosis.? There is mild degenerative anterolisthesis of C7 on T1.? There is significant multilevel bilateral foraminal narrowing, including high-grade left foraminal stenosis C3-C4.? There is extensive multilevel facet arthropathy.? ? Soft tissues:? Prevertebral soft tissues are normal in thickness.? No paravertebral hematomas.? No apical pneumothoraces.? ? ? IMPRESSION:? ? 1. No acute cervical fracture or dislocation is identified. ? 2. Very advanced cervical spondylitic change.? Findings include multilevel degenerative anterolisthesis or retrolisthesis depending on the level.? There is a question of anterior ligamentous laxity at C2-C3.? There is multilevel canal stenosis and significant multilevel foraminal stenosis.? There is advanced multilevel facet arthropathy. ? Comment:? If this patient has any neurological deficit which is felt to be secondary to the acute trauma, consider cervical spine MRI.? Dictated by: Nash Elliott M.D. on 07/10/2021 at 20:04 ? ? Approved by: Nash Elliott M.D. on 07/10/2021 at 20:10 CT scan - head: Radiologist's Impression: [address] [place] [address] CT Scan Report Signed Patient: Gregg Lopez MR#: [id number] : 1940 Acct:[id number] Age/Sex: 80 / M Date of Service: 07/10/21 Loc: ED Accession Number: [id number] ?? Procedure: CT head/brain wo con Ordering Provider: Lambert Do D.O. PROCEDURE:? CT HEAD/BRAIN WO CON ? INDICATIONS:? fall hit head ? TECHNIQUE:? Noncontrast 4.5 mm thick angled axial sections acquired from the foramen magnum to the vertex, with coronal and sagittal reformats.? For radiation dose reduction, the following was used:? automated exposure control, adjustment of mA and/or kV according to patient size.? ? COMPARISON:? None. ? FINDINGS:? Image quality:? Excellent.? ? CSF spaces:? Basal cisterns are patent.? No extra-axial fluid collections.? The ventricles are symmetric in size and shape.? ? Brain:? No intracranial bleeds or masses.? There is cerebral volume loss for age, with resultant ventricular and sulcal prominence.? There are periventricular and deep white matter chronic small vessel ischemic changes.? There is intracranial internal carotid artery atherosclerosis.? ? Skull and face:? Calvarium and visualized facial bones appear intact, without suspicious lesions.? Probable nasal bone fracture with a small amount of air anterior to the nasal bone to the left of midline.? Small left forehead hematoma. ? Sinuses:? Visualized sinuses and mastoids are clear.? ? IMPRESSION:? ? 1. Probable nasal bone fracture. ? 2. Negative for acute stroke, hemorrhage, or mass. No evidence of significant intracranial sequelae of acute trauma. ? ? ? Dictated by: Nash Elliott M.D. on 07/10/2021 at 20:01 ? ? Approved by: Nash Elliott M.D. on 07/10/2021 at 20:03? ECG Data Attestation: I personally reviewed and interpreted this ECG as follows: Interpretation: Sinus rhythm Ventricular rate is 74 Normal axis Normal QRS Normal QTC No ST T wave changes MDM Narrative Medical decision making narrative: It does appear that this was a mechanical fall. EKG is unremarkable. Has a GCS of 15. His head CT is unremarkable except for potential nasal bone fracture. He does have a laceration over the bridge of his nose but it is superficial. The stellate abrasion above his left eye unfortunately cannot be repaired here in the ER. It is more of a skin tear/abrasions rather than lacerations. Patient has no neurologic symptoms in his upper extremities. Despite the findings on the CT scan I a do not feel that the patient requires an MRI based on his presentation in his exam today. Is ambulatory. No lower extremity discomfort. Patient was given care instructions and return precautions. He expressed understanding and agreement. Discharge Plan Departure Patient Disposition: Home Clinical Impression: Fracture, nasal, Laceration of nose, Abrasion of forehead Instructions: DI for Laceration Repair, How to Prevent Falls Activity Restrictions/Additional Instructions: The stitches that were placed are absorbable. I would not be surprised if you develop black eyes over the next couple days. Keep ice over the area. Take all of your medication as directed. Contact your primary doctor for follow-up. You can shower like normal and use soap and water like normal. Return to the emergency department for any new or worsening symptoms. Prescriptions: No Action diclofenac sodium 75 mg tablet,delayed release (DR/EC) See Rx Instructions .ROUTE .COMPLEX Qty: 180 1RF Dose Instruction: TAKE 1 TABLET TWICE DAILY Rx Instructions: TAKE 1 TABLET TWICE DAILY lamotrigine [Lamictal] 100 mg tablet 150 mg PO QDAY Qty: 135 2RF duloxetine 30 mg capsule,delayed release(DR/EC) See Rx Instructions PO DAILY Qty: 270 1RF Rx Instructions: Take 1 capsule by mouth in the morning (30 mg) and 2 capsules in the evening (60 mg) PO daily lithium carbonate 150 mg capsule 300 mg PO HS Qty: 180 1RF Rx Instructions: Patient is taking 300 mg (2 caps) at bedtime acetaminophen [Tylenol Extra Strength] 500 mg tablet 1,000 mg PO TID PRN (Reason: Pain (Scale Score 1-3)) 0RF omeprazole 20 mg capsule,delayed release(DR/EC) 20 mg PO BID 0RF Referrals: Robert Echols MD [Primary Care Provider] -
[2021-07-10] MEDS: TET,DIPH,PERTUSS(ACELL),VAC/PF 0.5 ML SYRINGE IM (20:58)
[2021-07-10] MEDS: BACITRACIN OINT 0.9 GM PCKT 1 APPLIC TOP (20:58)
[2021-07-10] MEDS: LIDO 1%/SOD BICARB 8.4% (10ML) 10 ML SYRINGE INJ (20:59)
== END 2021-07-10 21:43 | disposition home or self-care (01) ==
PROVIDERS: Emergency Provider Emergency Medicine; Family Provider Internal Medicine; PCP Internal Medicine
DX: S02.2XXA Fracture of nasal bones, initial encounter for closed fracture (principal); S01.21XA Laceration without foreign body of nose, initial encounter; S01.511A Laceration without foreign body of lip, initial encounter; M54.2 Cervicalgia; W01.0XXA Fall on same level from slipping, tripping and stumbling without subsequent striking against object, initial encounter; Z23 Encounter for immunization
CPT/HCPCS: 12011; 36415; 70450; 72125; 80048; 85025; 90471; 93005; 93010; 99284; 99285; 90715

== ENCOUNTER 2021-07-20 16:54 | Observation (INO) | payer OTHER, SELFPAY ==
[2021-07-20 17:04] VITALS: BP 183/82; PULSE 72; RESP 18; TEMP 36.9; O2SAT 97
--- NOTE | 2021-07-20 17:04 | DI.CT.S_ITS ---
PROCEDURE: CT STROKE INDICATIONS: speech trouble x1 hour TECHNIQUE: Noncontrast 4.5 mm thick angled axial sections acquired from the foramen magnum to the vertex, with coronal reformats. For radiation dose reduction, the following was used: automated exposure control, adjustment of mA and/or kV according to patient size. COMPARISON: None. FINDINGS: Image quality: Excellent. CSF spaces: Basal cisterns are patent. No extra-axial fluid collections. Ventricles are normal in size and shape. Brain: No midline shift. No intracranial masses or hemorrhage. Finch-white matter interface is normal. Age-appropriate cerebral cortical volume loss and mild white matter hypodensity. Skull and face: There is a chronic left nasal bone fracture.Calvarium and visualized facial bones are otherwise intact, without suspicious lesions. Sinuses: Visualized sinuses and mastoids are clear. IMPRESSION: 1. No CT evidence of acute intracranial process. 2. Age-appropriate cerebral cortical volume loss and chronic microvascular ischemic changes. 3. Findings called to Dr. Myers in the emergency room at 17:23 hours. This study fulfills neurological imaging criteria for inclusion or exclusion of acute stroke therapies based on available published neurological imaging guidelines. Dictated by: Gabi Harris M.D. on 07/20/2021 at 17:19 Approved by: Gabi Harris M.D. on 07/20/2021 at 17:23
--- NOTE | 2021-07-20 17:05 | DI.CT.S_ITS ---
PROCEDURE: CT ANGIO HEAD AND NECK INDICATIONS: speech trouble x1 hour TECHNIQUE: Noncontrast images were performed earlier in the day and not repeated. After the administration of intravenous contrast, 1 mm thick sections acquired from the aortic arch through the [place] of [place]. Post-contrast 4.5 mm thick sections then re-acquired from the foramen magnum to the vertex. 3-dimensional ksbeogk-pdgjigacy-gnhrkyuzpf (MIP) and/or volume rendering reformats were acquired of the central intracranial vasculature and neck separately. COMPARISON: [facility], CT, CT HEAD/BRAIN WO CON, 07/10/2021, 19:48. [facility], CT, CT STROKE, 07/20/2021, 17:07. FINDINGS: Image quality: Excellent. BRAIN: CSF spaces: Ventricles are normal in size and shape. Basal cisterns are patent. No extra-axial fluid collections. Brain: No midline shift. No intracranial bleeds or masses. Finch-white matter interface appears intact. Skull and face: Calvarium and facial bones appear intact, without suspicious lesions. Orbits appear normal. Sinuses: Sinuses and mastoids are clear. HEAD CT ANGIOGRAPHY: Anterior circulation: Intracranial internal carotid arteries are normal in size and flow. The flow within the paired anterior cerebral arteries is normal and symmetric. The flow within the middle cerebral arteries is normal and symmetric. The anterior communicating artery is seen. No aneurysms are seen. Posterior circulation: Visualized portions of the vertebral arteries demonstrate normal caliber, and join to form a normal appearing basilar artery. Flow within the posterior cerebral arteries is normal and symmetric. No aneurysms are seen. 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 This is considered to be a developmental variant of no clinical consequence. The origins of the common carotid arteries appear patent. The common carotid arteries demonstrate normal caliber and courses. The bifurcation regions are both widely patent. The internal carotid arteries demonstrate normal calibers and courses. Posterior circulation: The origins of the vertebral arteries both appear widely patent. The more superior extracranial portions of both vertebral arteries also demonstrate normal caliber. Mild generalized tortuosity can be seen of the vertebral arteries. Soft tissues: Visualized neck soft tissues demonstrate no suspicious abnormalities. Bones: No suspicious bony lesions. Visualized cervical spine appears normally aligned. Prominent cervical spine degenerative changes are seen, with grade 1 anterolisthesis at C2-C3 and C3-C4. Moderate to severe disc space narrowing is seen at C4-C5, C5-C6, C6-C7, and throughout the upper thoracic spine. Focal degenerative change and soft tissue calcification can be seen involving the region of the dens. IMPRESSION: No significant intracranial arterial abnormality is seen. Within the arteries of the neck, no hemodynamically significant stenosis can be seen. 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 Any quantitative measurements of stenosis were performed using NASCET criteria. Dictated by: Christiano Martell M.D. on 07/20/2021 at 16:29 Approved by: Christiano Martell M.D. on 07/20/2021 at 16:32
--- NOTE | 2021-07-20 17:10 | ED_ITS ---
HPI - Neuro Symptoms/Deficit General Chief Complaint: Neuro Symptoms/Deficit Stated Complaint: sudden onset of confusion Time Seen by Provider: 07/20/21 17:04 History of Present Illness HPI Narrative: 80-year-old male nonsmoker with history of GERD, bipolar 1, hyperlipidemia presents with his in the chief complaint of a sudden onset confusion and difficulty in finding words that started about 1 hour ago. He had been in his normal state of health when it was noted that he was having difficulty finding words. He denies any dizziness or blurred vision. She denies any trouble with his extremities such as numbness, tingling or weakness. He is speaking clearly but nonsensically and admits that he is aware of the fact that he is having difficulty finding words. He presents under these circumstances. He did fall about 1 week ago and had a head and neck injury with negative imaging. He is activated as a code stroke Related Data Home Medications Medication Instructions Recorded Confirmed acetaminophen 500 mg tablet 1,000 mg PO TID PRN tab 09/15/19 07/20/21 (Tylenol Extra Strength) omeprazole 20 mg capsule,delayed 20 mg PO BID cap 11/19/19 07/20/21 release diclofenac sodium 75 mg 75 mg PO BID 07/20/21 07/20/21 tablet,delayed release duloxetine 30 mg capsule,delayed 30 mg PO QAM 07/20/21 07/20/21 release duloxetine 30 mg capsule,delayed 60 mg PO BEDTIME 07/20/21 07/20/21 release lamotrigine 100 mg tablet 150 mg PO BEDTIME 07/20/21 07/20/21 (Lamictal) Previous Rx's Medication Instructions Recorded lithium carbonate 150 mg capsule 300 mg PO HS #180 cap 03/14/21 Allergies Allergy/AdvReac Type Severity Reaction Status Date / Time No Known Drug Allergies Allergy Verified 07/17/20 11:46 Review of Systems Review of Systems Narrative: GENERAL: Denies chills, fatigue, malaise, fever, sweats. HEENT: Denies sinus pain, ear pain, sore throat, difficulty swallowing, dizziness. RESPIRATORY: Denies dyspnea, cough, wheezing, hemoptysis, sputum. CARDIOVASCULAR: Denies chest pain, palpitations, orthopnea, edema, GASTROINTESTINAL: Denies nausea, vomiting, abdominal pain, diarrhea, constipation, melena. : Denies dysuria, frequency, incontinence, hematuria, urinary retention. MUSCULOSKELETAL: denies weakness, joint pain, or bony pain SKIN: Denies rash, skin lesions, or other NEUROLOGIC: See HPI PSYCHIATRIC: No concerning psychosocial issues. 12 point review of systems is negative except for those stated above Patient History Medical History DJD of both shoulders Paronychia of toe Right knee DJD Surgical History History of carpal tunnel repair History of lumbar fusion Status post coronary artery bypass graft Status post rotator cuff repair Family History Mother Osteoporosis Social History Smoking Status: Never smoker Smoking Status: Never smoker alcohol intake frequency: 0-2 drinks per day Substance Use Type: does not use Exam Narrative Exam Narrative: GENERAL: [80] year old patient appears stated age. Well-developed patient, in mild distress. HEAD: Atraumatic. Normocephalic. EYES: Pupils equal round and reactive. Extraocular motions intact. No scleral icterus. No injection or drainage. ENT: Nose without bleeding, purulent drainage. Throat without erythema, tonsillar hypertrophy or exudate. Airway patent. NECK: Trachea midline. Non tender CARDIOVASCULAR: Regular rate and rhythm without murmurs, gallops, or rubs. RESPIRATORY: Clear to auscultation. Breath sounds equal bilaterally. No wheezes, rales, or rhonchi. GASTROINTESTINAL: Abdomen soft, non-tender, nondistended. EXTREMITIES: No edema or joint tenderness. BACK: Nontender without deformity or crepitance. No flank tenderness. NEURO: AOx3. SKIN: No rash or erythema of visible areas Initial Vital Signs Initial Vital Signs: Vital Signs Temperature 98.5 F 07/20/21 17:04 Pulse Rate 72 07/20/21 17:04 Respiratory Rate 18 07/20/21 17:04 Blood Pressure 183/82 H 07/20/21 17:04 Pulse Oximetry 97 07/20/21 17:04 Course Orders Ordered: ED Orders 07/20/21 17:04 CT Stroke Stat EKG-12 Lead Stat 07/20/21 17:05 CT angio head and neck Stat Complete Blood Count AUTO DIFF Stat Comprehensive Metabolic Panel Stat Lamotrigine Lamictal Stat [place] Stat Urine Drug Screen, Rapid Stat 07/20/21 17:52 COVID19 -Nasal swab/Pre-Proc Stat Sodium Chloride (Normal Saline 0.9%) 1,000 mls @ 150 mls/hr IV CONT WAYNE Last Admin: 07/20/21 18:12 Dose: 150 mls/hr Documented by: CLAY Discontinued Medications Aspirin (Aspirin 81 Mg Chew Tab) 324 mg PO NOW ONE Stop: 07/20/21 18:04 Last Admin: 07/20/21 18:12 Dose: 324 mg Documented by: CLAY Vital Signs Vital signs: Vital Signs - 8 hr 07/20/21 17:04 Temperature 98.5 F Pulse Rate 72 Respiratory Rate 18 Blood Pressure 183/82 H Pulse Oximetry 97 MDM - Neuro Symptoms/Deficit Lab Data Result diagrams: 07/20/21 17:05 07/20/21 17:05 Labs: Lab Results 07/20/21 07/20/21 07/20/21 Range/Units 17:05 17:05 17:05 WBC 7.9 (4.5-11.0) X10^3/uL RBC 4.47 L (4.5-5.9) X10^6/uL Hgb 13.8 (13.5-17.5) g/dL Hct 41.1 (41-53) % MCV 91.9 (80-100) fL MCH 30.8 (26-34) PG MCHC 33.5 (30-36) % RDW 14.0 (11.6-14.8) % Plt Count 267 (150-400) X10^3/uL Neut % (Auto) 61.9 (50-75) % Lymph % (Auto) 24.8 L (25-40) % [place] % (Auto) 10.2 (3-14) % Eos % (Auto) 2.4 (2-4) % Baso % (Auto) 0.7 (0-2) % Neut # (Auto) 4900 (0288-0957) /uL Lymph # (Auto) 2000 (6503-1167) /uL [place] # (Auto) 800 (0-900) /uL Eos # (Auto) 200 (0-450) /uL Baso # (Auto) 100 (0-100) /uL Sodium 139 (137-145) mmol/L Potassium 4.3 (3.4-5.1) mmol/L Chloride 105 (98-107) mmol/L Carbon Dioxide 27 (22-32) mmol/L BUN 26 H (9-20) mg/dL Creatinine 1.02 (0.66-1.25) mg/dL Estimated GFR > 60.0 (>60) mL/min BUN/Creatinine Ratio 25.5 H (6-22) Glucose 89 (80-110) mg/dL Calcium 9.7 (8.4-10.2) mg/dL Total Bilirubin 0.7 (0.2-1.3) mg/dL AST 41 (17-59) IU/L ALT 21 (<50) IU/L Alkaline Phosphatase 62 (38-126) U/L Total Protein 7.8 (6.3-8.2) g/dL Albumin 4.8 (3.5-5.0) g/dL Globulin 3.0 (1.7-4.1) g/dL Albumin/Globulin Ratio 1.6 (1.0-2.8) [place] 0.2 L (0.6-1.2) mmol/L SARS-CoV-2 (PCR) (Negative) 07/20/21 Range/Units 17:52 WBC (4.5-11.0) X10^3/uL RBC (4.5-5.9) X10^6/uL Hgb (13.5-17.5) g/dL Hct (41-53) % MCV (80-100) fL MCH (26-34) PG MCHC (30-36) % RDW (11.6-14.8) % Plt Count (150-400) X10^3/uL Neut % (Auto) (50-75) % Lymph % (Auto) (25-40) % [place] % (Auto) (3-14) % Eos % (Auto) (2-4) % Baso % (Auto) (0-2) % Neut # (Auto) (7273-4805) /uL Lymph # (Auto) (0658-5594) /uL [place] # (Auto) (0-900) /uL Eos # (Auto) (0-450) /uL Baso # (Auto) (0-100) /uL Sodium (137-145) mmol/L Potassium (3.4-5.1) mmol/L Chloride (98-107) mmol/L Carbon Dioxide (22-32) mmol/L BUN (9-20) mg/dL Creatinine (0.66-1.25) mg/dL Estimated GFR (>60) mL/min BUN/Creatinine Ratio (6-22) Glucose (80-110) mg/dL Calcium (8.4-10.2) mg/dL Total Bilirubin (0.2-1.3) mg/dL AST (17-59) IU/L ALT (<50) IU/L Alkaline Phosphatase (38-126) U/L Total Protein (6.3-8.2) g/dL Albumin (3.5-5.0) g/dL Globulin (1.7-4.1) g/dL Albumin/Globulin Ratio (1.0-2.8) [place] (0.6-1.2) mmol/L SARS-CoV-2 (PCR) Negative (Negative) Point of Care Testing Glucose POC [address] scan - head: Radiologist's Impression: [place] [address] CT Scan Report Signed Patient: Gregg Lopez MR#: [id number] : 1940 Acct:[id number] Age/Sex: 80 / M Date of Service: 07/20/21 Loc: ED Accession Number: [id number] ?? Procedure: CT Stroke Ordering Provider: Calixto Myers D.O. PROCEDURE:? CT STROKE ? INDICATIONS:? speech trouble x1 hour ? TECHNIQUE:? Noncontrast 4.5 mm thick angled axial sections acquired from the foramen magnum to the vertex, with coronal reformats.? For radiation dose reduction, the following was used:? automated exposure control, adjustment of mA and/or kV according to patient size.? ? COMPARISON:? None. ? FINDINGS:? Image quality:? Excellent.? ? CSF spaces:? Basal cisterns are patent.? No extra-axial fluid collections.? Ventricles are normal in size and shape.? ? Brain:? No midline shift.? No intracranial masses or hemorrhage.? Finch-white matter interface is normal.? Age-appropriate cerebral cortical volume loss and mild white matter hypodensity. ? Skull and face:? There is a chronic left nasal bone fracture.Calvarium and visualized facial bones are otherwise intact, without suspicious lesions.? ? Sinuses:? Visualized sinuses and mastoids are clear.? ? IMPRESSION:? 1. No CT evidence of acute intracranial process.? 2. Age-appropriate cerebral cortical volume loss and chronic microvascular ischemic changes. ? 3. Findings called to Dr. Myers in the emergency room at 17:23 hours.? ? This study fulfills neurological imaging criteria for inclusion or exclusion of acute stroke therapies based on available published neurological imaging guidelines.? ? ? Dictated by: Gabi Harris M.D. on 07/20/2021 at 17:19 ? ? Approved by: Gabi Harris M.D. on 07/20/2021 at 17:23 ? Gregg Lopez?(Cameron)??80??M??1940 ? Allergy/Adv: No Known Drug Allergies (More??) Close Head/Neck CTA (Signed) Christiano Martell - 07/20/[address] (Signed) Gabi Harris - 07/20/[address] (Signed) Nash Elliott - 07/10/[address] (Signed) Nash Elliott - 07/10/21 Hip X-Ray (Signed) Diana Estrada - 08/31/20 Vascular Ultrasound (Signed) Brian Akhtar - 07/22/20 Lumbar Spine X-Ray (Signed) Valerie Garrett - 11/10/19 Knee X-Ray (Signed) Adrian London - 09/12/[address] (Signed) Adrian London - 12/31/18 Echocardiogram Ultrasound (Signed) Valery Wang - 04/05/[address] (Signed) Adrian London - 04/04/18 Chest X-Ray (Signed) Diana Estrada - 03/26/18 [facility]?[address] [address] [address] Scan Report Signed Patient: Gregg Lopez MR#: [id number] : 1940 Acct:[id number] Age/Sex: 80 / M Date of Service: 07/20/21 Loc: ED Accession Number: [id number] ?? Procedure: CT angio head and neck Ordering Provider: Calixto Myers D.O. PROCEDURE:? CT ANGIO HEAD AND NECK ? INDICATIONS:? speech trouble x1 hour ? TECHNIQUE:? Noncontrast images were performed earlier in the day and not repeated.? ? After the administration of intravenous contrast, 1 mm thick sections acquired from the aortic arch through the [place] of [place].? Post-contrast 4.5 mm thick sections then re- acquired from the foramen magnum to the vertex.? 3-dimensional avulvty-eqeciplzh-zoubjnrrmw (MIP) and/or volume rendering reformats were acquired of the central intracranial vasculature and neck separately. ? COMPARISON:? [facility], CT, CT HEAD/BRAIN WO CON, 07/10/2021, 19:48.? [facility], CT, CT STROKE, 07/20/2021, 17:07. ? FINDINGS:? Image quality:? Excellent.? ? BRAIN:? CSF spaces:? Ventricles are normal in size and shape.? Basal cisterns are patent.? No extra-axial fluid collections.? ? Brain:? No midline shift.? No intracranial bleeds or masses.? Finch-white matter interface appears intact.? ? Skull and face:? Calvarium and facial bones appear intact, without suspicious lesions.? Orbits appear normal.? ? Sinuses:? Sinuses and mastoids are clear.? ? HEAD CT ANGIOGRAPHY:? Anterior circulation:? Intracranial internal carotid arteries are normal in size and flow.? The flow within the paired anterior cerebral arteries is normal and symmetric.? The flow within the middle cerebral arteries is normal and symmetric.? The anterior communicating artery is seen.? No aneurysms are seen.? ? Posterior circulation:? Visualized portions of the vertebral arteries demonstrate normal caliber, and join to form a normal appearing basilar artery.? Flow within the posterior cerebral arteries is normal and symmetric.? No aneurysms are seen.? ? NECK CT ANGIOGRAPHY:? Carotid system:? 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 This is considered to be a developmental variant of no clinical consequence. The origins of the common carotid arteries appear patent.? The common carotid arteries demonstrate normal caliber and courses.? The bifurcation regions are both widely patent.? The internal carotid arteries demonstrate normal calibers and courses.? ? Posterior circulation:? The origins of the vertebral arteries both appear widely patent.? The more superior extracranial portions of both vertebral arteries also d emonstrate normal caliber.? Mild generalized tortuosity can be seen of the vertebral arteries. ? Soft tissues:? Visualized neck soft tissues demonstrate no suspicious abnormalities.? ? Bones:? No suspicious bony lesions.? Visualized cervical spine appears normally aligned.? Prominent cervical spine degenerative changes are seen, with grade 1 anterolisthesis at C2-C3 and C3-C4.? Moderate to severe disc space narrowing is seen at C4-C5, C5- C6, C6-C7, and throughout the upper thoracic spine.? Focal degenerative change and soft tissue calcification can be seen involving the region of the dens. ? ? IMPRESSION:? No significant intracranial arterial abnormality is seen.? ? Within the arteries of the neck, no hemodynamically significant stenosis can be seen. ? 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 ? Any quantitative measurements of stenosis were performed using NASCET criteria.? ? ? Dictated by: Christiano Martell M.D. on 07/20/2021 at 16:29 ? ? Approved by: Christiano Martell M.D. on 07/20/2021 at 16:32 ? Discharge Plan Departure Patient Disposition: Admitted as Observation Clinical Impression: Transient cerebral ischemia Prescriptions: No Action lithium carbonate 150 mg capsule 300 mg PO HS Qty: 180 1RF Rx Instructions: Patient is taking 300 mg (2 caps) at bedtime duloxetine 30 mg capsule,delayed release(DR/EC) 60 mg PO BEDTIME 0RF diclofenac sodium 75 mg tablet,delayed release (DR/EC) 75 mg PO BID 0RF lamotrigine [Lamictal] 100 mg tablet 150 mg PO BEDTIME 0RF duloxetine 30 mg capsule,delayed release(DR/EC) 30 mg PO QAM 0RF acetaminophen [Tylenol Extra Strength] 500 mg tablet 1,000 mg PO TID PRN (Reason: Pain (Scale Score 1-3)) 0RF omeprazole 20 mg capsule,delayed release(DR/EC) 20 mg PO BID 0RF Referrals: Robert Echols MD [Primary Care Provider] -
[2021-07-20 17:21] LABS: Add Manual Diff / Slide Review NO; Basophils Absolute Auto 100 /uL (0-100); Basophils Percent Auto 0.7 % (0-2); Eosinophils Absolute Auto 200 /uL (0-450); Eosinophils Percent Auto 2.4 % (2-4); Hematocrit 41.1 % (41-53); Hemoglobin 13.8 g/dL (13.5-17.5); Lymphocytes Absolute Auto 2000 /uL (1100-4500); Lymphocytes Percent Auto 24.8 % (25-40); Mean Corpuscular HGB Conc 33.5 % (30-36); Mean Corpuscular Hemoglobin 30.8 PG (26-34); Mean Corpuscular Volume 91.9 fL (80-100); Monocytes Absolute Auto 800 /uL (0-900); Monocytes Percent Auto 10.2 % (3-14); Neutrophils Absolute Auto 4900 /uL (1500-7000); Neutrophils Percent Auto 61.9 % (50-75); Platelet Count 267 X10^3/uL (150-400); Red Blood Cell Count 4.47 X10^6/uL (4.5-5.9); White Blood Cell Count 7.9 X10^3/uL (4.5-11.0)
[2021-07-20 17:38] LABS: Alanine Aminotransferase 21 IU/L (<50); Albumin 4.8 g/dL (3.5-5.0); Albumin Globulin Ratio 1.6 (1.0-2.8); Alkaline Phosphatase 62 U/L (38-126); Aspartate Aminotransferase 41 IU/L (17-59); BUN Creatinine Ratio 25.5 (6-22); Bilirubin Total 0.7 mg/dL (0.2-1.3); Blood Urea Nitrogen 26 mg/dL (9-20); Calcium 9.7 mg/dL (8.4-10.2); Carbon Dioxide 27 mmol/L (22-32); Chloride 105 mmol/L (98-107); Estimated Glomerular Filt Rate > 60.0 mL/min (>60); Glucose 89 mg/dL (80-110); Potassium 4.3 mmol/L (3.4-5.1); Sodium 139 mmol/L (137-145); Total Protein 7.8 g/dL (6.3-8.2)
[2021-07-20 17:39] LABS: HEMOLYSIS 78 (0-50)
[2021-07-20] MEDS: ASPIRIN 81 MG CHEW TAB 324 MG PO (18:12)
[2021-07-20] MEDS: SODIUM CHLORIDE 0.9% 1,000 ML 150 ML IV (18:12)
[2021-07-20 18:15] LABS: COVID19 -Nasal RAPID Negative (Negative)
[2021-07-20 18:50] LABS: Lithium 0.2 mmol/L (0.6-1.2)
[2021-07-20 19:00] VITALS: BP 180/92; PULSE 79; RESP 21; O2SAT 93
[2021-07-20 19:10] LABS: UR Morphine/Opiate cutoff 300 Negative (Negative); Ur Creatinine Normal (Normal); Ur Specific Gravity Normal (Normal); Urine Amphetamines Negative (Negative); Urine Barbiturates Negative (Negative); Urine Benzodiazepines Negative (Negative); Urine Cocaine Negative (Negative); Urine MDMA Negative (Negative); Urine Methadone Negative (Negative); Urine Methamphetamines Negative (Negative); Urine Oxycodone Negative (Negative); Urine Phencyclidine Negative (Negative); Urine Tetrahydrocannabinol Negative (Negative); Urine Tricyclic Antidepressant Negative (Negative); Urine pH Normal (Normal)
[2021-07-20 19:23] VITALS: PULSE 74; RESP 24
[2021-07-20 19:30] VITALS: BP 176/104; PULSE 72; RESP 19; O2SAT 97
[2021-07-20 20:00] VITALS: BP 162/93; PULSE 72; RESP 21; O2SAT 96
[2021-07-20 20:24] VITALS: BMI 28.8
--- NOTE | 2021-07-20 21:03 | DI.MRI.S_ITS ---
PROCEDURE: MR HEAD/BRAIN WO CON INDICATIONS: tia TECHNIQUE: Non-contrast axial T1 spin echo, axial T2 fast spin echo, sagittal and axial FLAIR, coronal T2 fast spin echo, axial gradient echo, axial diffusion and ADC through the brain. COMPARISON: [facility], US, US CAROTID DOPPLER BI, 07/21/2021, 8:40. [facility], CT, CT HEAD/BRAIN WO CON, 07/10/2021, 19:48. [facility], CT, CT STROKE, 07/20/2021, 17:07. [facility], CT, CT ANGIO HEAD AND NECK, 07/20/2021, 17:07. FINDINGS: Image quality: Excellent. CSF spaces: Ventricles appear symmetric in size and shape. Basal cisterns are patent. No extra-axial fluid collections. Brain: No intracranial bleeds or mass effects. There is cerebral volume loss for age. There are periventricular and deep white matter chronic small vessel ischemic changes. Brainstem appears normal. Diffusion-weighted images show no acute ischemic insults. No chronic ischemic insults. Normal intravascular flow voids are present. Skull and face: Calvarial bone marrow is normal in signal. Orbits are normal. Sinuses: Sinuses and mastoids are clear. IMPRESSION: No findings of acute or subacute infarction can be seen. Note is made of age-appropriate brain parenchymal volume loss and chronic small vessel ischemic changes. Dictated by: Christiano Martell M.D. on 07/21/2021 at 9:29 Approved by: Christiano Martell M.D. on 07/21/2021 at 9:30
--- NOTE | 2021-07-20 21:05 | P.HP_ITS ---
History of Present Illness History of Present Illness Date Patient Seen: 07/20/21 Time Patient Seen: 21:06 Date of Onset of Symptoms: 07/20/21 Chief complaint: sudden onset of confusion Narrative: Patient is an 80-year-old male nonsmoker with history of GERD but bipolar 1 disease hyperlipidemia presents with his chief complaint of sudden onset of confusion and difficulty in finding words. Patient was in his usual state health until approximately 4:00 a.m. today when he noticed that he was having trouble finding words and was making no sense talking to his . He could remember the event almost completely. He apparently was having no real other symptoms. He was not dizzy or lightheaded. He felt like he knew everything was happen in. He had no visual changes. He notices no motor or sensory changes. Him and his had a discussion on whether not he should go to the hospital. He slowly started to improve. He was brought to the emergency room. As he was in the emergency room it almost completely recovered and by the time the emergency room evaluation was ovary felt like he was back to his normal self. He had no other significant changes. Patient did have a fall about a week ago in which he was seen in the emergency room. Scanning both had neck at that time were negative. He did have an activated code stroke. At the time of my evaluation he was feeling completely normal. Would like to go home. Had no other changes. Patient denies any history of coronary artery disease. No history of atrial fib rillation. He has had no shortness of breath chest pain palpitations or other changes. [place] like he was in his usual state health. He does have a history of hyperlipidemia is not been treated. Patient otherwise has no new changes. He has has no chest pain no shortness of breath no dizziness lightheadedness or other changes. He denies any fevers chills cough abdominal pain change in urine or bowel function. Past medical history is really significant only for depression. Otherwise he has a history of coronary artery disease. Patient History Medical History DJD of both shoulders Paronychia of toe Right knee DJD Surgical History History of carpal tunnel repair History of lumbar fusion Status post coronary artery bypass graft Status post rotator cuff repair Family & Social History Family History Mother Osteoporosis Social History: household members spouse Prior Living Arrangements House Safety & Behavioral: Feels Safe in Current No Environment Been Physically Hurt or Yes Threatened By a Person Suicidal Ideation Description None Suicide Plan Description No Plan Tobacco & Substance use: Smoking Status Never smoker alcohol intake current alcohol intake frequency 0-2 drinks per day Substance Use Type does not use Meds Home Medications and Allergies Home Medications Medication Instructions Recorded Confirmed Type acetaminophen 500 mg tablet 1,000 mg PO TID PRN tab 09/15/19 07/20/21 History (Tylenol Extra Strength) omeprazole 20 mg capsule,delayed 20 mg PO BID cap 11/19/19 07/20/21 History release lithium carbonate 150 mg capsule 300 mg PO HS #180 cap 03/14/21 07/20/21 Rx diclofenac sodium 75 mg 75 mg PO BID 07/20/21 07/20/21 History tablet,delayed release duloxetine 30 mg capsule,delayed 30 mg PO QAM 07/20/21 07/20/21 History release duloxetine 30 mg capsule,delayed 60 mg PO BEDTIME 07/20/21 07/20/21 History release lamotrigine 100 mg tablet 150 mg PO BEDTIME 07/20/21 07/20/21 History (Lamictal) Allergies Allergy/AdvReac Type Severity Reaction Status Date / Time No Known Drug Allergies Allergy Verified 07/17/20 11:46 Review of Systems Review of Systems Narrative: Negative except for positives in history and physical Exam Vital Signs (past 8 hours): - 07/20/21 17:04 07/20/21 19:00 07/20/21 19:23 Temperature 98.5 F Pulse Rate 72 79 74 Respiratory Rate 18 21 24 Blood Pressure 183/82 H 180/92 H Pulse Oximetry 97 93 07/20/21 19:30 07/20/21 20:00 Temperature Pulse Rate 72 72 Respiratory Rate 19 21 Blood Pressure 176/104 H 162/93 H Pulse Oximetry 97 96 Oxygen Delivery Method Room Air Narrative Exam Narrative: Alert elderly male lying in bed comfortable with no other changes. HEENT exam normal except for small eschar left side forehead. No tenderness. Pupils equal spots of light. All EOMI is intact. Mucous membranes moist. Neck supple without adenopathy JVD or bruits lungs are clear. Heart regular rate and rhythm. Abdomen is soft positive bowel sounds nontender. Extremities unremarkable. Pulses show decreased dorsalis pedis pulse on right leg. Normal capillary refill. Neurologic exam shows cranial nerves 2-12 were intact. Motor is 5/5. Reflexes are 1+ on the right. 2+ on the left. Patient is alert and oriented. Does have occasional trouble finding words. Otherwise intact Objective Labs Result Diagrams: 07/20/21 17:05 07/20/21 17:05 Labs: Laboratory Results - last 24 hr 07/20/21 07/20/21 07/20/21 17:05 17:05 17:05 WBC 7.9 RBC 4.47 L Hgb 13.8 Hct 41.1 MCV 91.9 MCH 30.8 MCHC 33.5 RDW 14.0 Plt Count 267 Neut % (Auto) 61.9 Lymph % (Auto) 24.8 L [place] % (Auto) 10.2 Eos % (Auto) 2.4 Baso % (Auto) 0.7 Neut # (Auto) 4900 Lymph # (Auto) 2000 [place] # (Auto) 800 Eos # (Auto) 200 Baso # (Auto) 100 Sodium 139 Potassium 4.3 Chloride 105 Carbon Dioxide 27 BUN 26 H Creatinine 1.02 Estimated GFR > 60.0 BUN/Creatinine Ratio 25.5 H Glucose 89 Calcium 9.7 Total Bilirubin 0.7 AST 41 ALT 21 Alkaline Phosphatase 62 Total Protein 7.8 Albumin 4.8 Globulin 3.0 Albumin/Globulin Ratio 1.6 U Opiates 300ng/mL cut Ur Oxycodone Screen Urine Methadone Screen Ur Barbiturates Screen U Tricyclic Antidepress Ur Phencyclidine Scrn Ur Amphetamines Screen U Methamphetamines Scrn Ur MDMA Scrn (Ecstasy) U Benzodiazepines Scrn [place] 0.2 L Urine Cocaine Screen U Marijuana (THC) Screen SARS-CoV-2 (PCR) 07/20/21 07/20/21 17:52 18:52 WBC RBC Hgb Hct MCV MCH MCHC RDW Plt Count Neut % (Auto) Lymph % (Auto) [place] % (Auto) Eos % (Auto) Baso % (Auto) Neut # (Auto) Lymph # (Auto) [place] # (Auto) Eos # (Auto) Baso # (Auto) Sodium Potassium Chloride Carbon Dioxide BUN Creatinine Estimated GFR BUN/Creatinine Ratio Glucose Calcium Total Bilirubin AST ALT Alkaline Phosphatase Total Protein Albumin Globulin Albumin/Globulin Ratio U Opiates 300ng/mL cut Negative Ur Oxycodone Screen Negative Urine Methadone Screen Negative Ur Barbiturates Screen Negative U Tricyclic Antidepress Negative Ur Phencyclidine Scrn Negative Ur Amphetamines Screen Negative U Methamphetamines Scrn Negative Ur MDMA Scrn (Ecstasy) Negative U Benzodiazepines Scrn Negative [place] Urine Cocaine Screen Negative U Marijuana (THC) Screen Negative SARS-CoV-2 (PCR) Negative Assessment & Plan Assessment & Plan narrative: TIA. Appears to be resolved. Not sure what patient's baseline is but suspect were close to that. CT scan and CTA were both normal. Showed no evidence of significance bleed or acute stroke visible. Neurologic exam is normal except for some slight increased reflexes on the left side. Blood pressure is mildly elevated but patient reports that it is normal as usual outpatient. His ER evaluation previously did show some elevation in blood pressure. Somewhat confusing. Will watch tonight. Will begin aspirin. Statin. It is unclear why is not on the statin to begin with and we will discuss this with him. Does have a history of heart disease. Will place on tele no evidence of AFib on initial EKG. Will follow from there. Patient understands questions answered. Elevated blood pressure without the diagnosis of hypertension. At this point I think were going to watch. We may add some lisinopril depending on how he does. Interesting that is been elevated but then normalizes over time. Will see how things go. He understands. History of hyperlipidemia. Patient has had a history of being on a statin in the past. Apparently simvastatin. In like to a field not sure if he really knows any specific side effects and was stopped. We discussed that this would be a important possible treatment given the fact the seems to have decreased pulses on the right and TIA. We will start with low-dose atorvastatin and he can follow up with his regular doctor. History of coronary artery disease. Interesting because he denies history of heart disease. Denies having a stent but his chart shows having a stent. At this point we will assume he did not have any cardiac disease he appears to be stable at this time. History of bipolar disease has been stable for some time. Will continue his usual medicines. History of reflux will continue on omeprazole. Code status. Patient is clearly and absolutely having previously decided that he is DNR. DVT prophylaxis. Should be low risk. Short stay I hope. Will do SCDs follow. Disposition. Hope discharge tomorrow depending on results of tests. And how he does overnight. May need outpatient monitoring to evaluate. 35 minute spent with patient is discussing with check out, and orders and documentation Time Spent With Patient Critical Care time: I spent a total of [] minutes of critical care time on this patient's care today; this time is exclusive of procedural time. Quality VTE Deep Vein Thrombosis/Pulmonary Embolism Present on Admission: No
--- NOTE | 2021-07-20 21:14 | DI.ECHO.S_ITS ---
[place] +---------+ [facility] +---------+ : : [address] : : : : [id number] : : : : Phone: [phone]+ Echocardiogram Report + + :Name: KRZYSZTOF BARCENAS Study Date: 07/21/2021 Height: 68 in : :[facility] ReadingLocation: Weight: 190 lb : : Gender: Male BSA: 2.0 m2 : :: 1940 Age: 80 yrs BP: 115/65 mmHg: :Reason For Study: TIA : :Ordering Physician: AILYN, : :MATHEUS Performed By: Flores Wood : :Referring: MATHEUS ROBERTSON : + + Interpretation Summary The ejection fraction is estimated to be 65-70%. Diastolic function could not be accurately assessed due to unobtainable data. The right ventricle is normal in size and function. The left atrium is mildly dilated. Heavy calcification of the posterior mitral annulus with some restriction of posterior mitral leaflet. The mitral valve mean gradient is 1.7 mmHg. No significant mitral valve stenosis. Pulmonary artery pressures cannot be estimated because of the lack of a measurable TR jet velocity. The ascending aorta is mildly enlarged. Compared to the prior study dated 09/27/2020, no significant change. Procedure: A two-dimensional transthoracic echocardiogram with color flow and Doppler was performed. The study quality was technically adequate. Comparison is made with the echocardiogram of 09/27/2020. The patient was in sinus rhythm with heart rates between 59-67 bpm during the exam. Left Ventricle: The left ventricle is normal in size and wall thickness. The ejection fraction is estimated to be 65-70%. Diastolic function could not be accurately assessed due to unobtainable data. Right Ventricle: The right ventricle is normal in size and function. Atria: The left atrium is mildly dilated. Right atrial size is normal. There is no Doppler evidence for an interatrial shunt. Mitral Valve: Heavy calcification of the posterior mitral annulus with some restriction of posterior mitral leaflet. There is moderate mitral annular calcification. The mitral valve mean gradient is 1.7 mmHg. No significant mitral valve stenosis. There is mild mitral regurgitation. Aortic Valve: The aortic valve is trileaflet. There is mild aortic valve sclerosis. The aortic valve is mildly calcified. There is no aortic valve stenosis. No aortic regurgitation is present. Tricuspid Valve: The tricuspid valve is normal in structure and function. There is trace tricuspid regurgitation. Pulmonary artery pressures cannot be estimated because of the lack of a measurable TR jet velocity. Pulmonic Valve: The pulmonic valve is not well visualized. There is trace pulmonic regurgitation. Great Vessels: The aortic root is normal size. The ascending aorta is mildly enlarged. The IVC is of normal diameter and collapses greater than 50% with a sniff. This suggests a low right atrial pressure of 3 mm Hg. Pericardium/ Pleura There is no pericardial effusion. There is no pleural effusion. MMode/2D Measurements & Calculations LVIDd: 4.6 cm LVOT diam: 2.2 cm LVIDs: 3.2 cm Ao root diam: 3.4 cm FS: 30.9 % asc Aorta Diam: 3.6 cm IVSd: 0.95 cm Ao Arch Diam (Prox Trans): 2.8 cm LVPWd: 1.2 cm LV cristina. diameter/BSA (cm/m^2): 2.3 LV sys. diameter/BSA (cm/m^2): 1.6 LA A2 area: 23.4 cm2 RA long axis: 5.2 cm LA A4 area: 21.9 cm2 RA area: 17.2 cm2 LA length (vol): 6.3 cm RA vol: 48.2 ml LA vol: 69.2 ml RA : 24.1 ml/m2 LA vol index: 34.6 ml/m2 IVC diam: 1.0 cm RVD1 (basal): 3.5 cm TAPSE: 2.4 cm Doppler Measurements & Calculations Ao V2 max: 167.2 cm/sec LVOT Max Luis: 88.9 cm/sec Ao V2 mean: 107.1 cm/sec LV V1 max P.2 mmHg Ao max P.2 mmHg LV V1 VTI: 17.0 cm Ao mean P.4 mmHg DELANEY(I,D): 2.0 cm2 Ao V2 VTI: 32.1 cm DELANEY(V,D): 2.1 cm2 sev ratio: 0.53 DELANEY indexed to BSA (cm^2/m^2): 1.0 MV E max luis: 82.8 cm/sec PA V2 max: 96.9 cm/sec MV A max luis: 91.9 cm/sec PA V2 mean: 66.9 cm/sec MV E/A: 0.90 PA mean P.1 mmHg Med Peak E' Luis: 6.5 cm/sec PA pr(Accel): 37.9 mmHg E/E' med: 12.8 Lat Peak E' Luis: 6.9 cm/sec E/E' lat: 11.9 E/e' average: 12.4 MV dec time: 0.32 sec MVA(VTI): 1.9 cm2 MV V2 mean: 60.8 cm/sec SV(LVOT): 65.7 ml MV mean P.7 mmHg MV V2 VTI: 35.2 cm Reading Physician:02:28 PM
[2021-07-20] MEDS: PANTOPRAZOLE DR 20 MG TABLET PO (21:48)
[2021-07-20] MEDS: lamoTRIgine 100 MG TABLET 150 MG PO (21:48)
[2021-07-20] MEDS: DULOXETINE 30 MG CAPSULE 60 MG PO (21:49)
[2021-07-20] MEDS: LITHIUM 150 MG IR CAPSULE 300 MG PO (21:49)
[2021-07-20 21:52] VITALS: O2SAT 96
[2021-07-21] VITALS (9 sets, daily range): BP systolic 115–164; BP diastolic 65–95; PULSE 72–85; RESP 16–21; TEMP 36.3–37.1; O2SAT 96–98
--- NOTE | 2021-07-21 | DI.US.S_ITS ---
PROCEDURE: US CAROTID DOPPLER BI INDICATIONS: TIA TECHNIQUE: Color and pulse Doppler interrogation was performed of both carotid systems, with image documentation and velocity measurements. COMPARISON: None. FINDINGS: Stenosis calculations are based on SRU (Society of Radiologists in Ultrasound) criteria. Right side: Brachial blood pressure: 130/78 mm Hg. Common carotid artery peak systolic velocity: 87 cm/sec. Internal carotid artery peak systolic velocity: 82 cm/sec. Internal carotid artery end diastolic velocity: 23 cm/sec. External carotid artery peak systolic velocity: 114 cm/sec. ICA/CCA peak systolic ratio: 1.0 . Finch scale imaging description: Calcified plaque Percent internal carotid artery stenosis: Less than 50% . Vertebral artery: Flow direction is antegrade. Left side: Brachial blood pressure: 129/76 mm Hg. Common carotid artery peak systolic velocity: 112 cm/sec. Internal carotid artery peak systolic velocity: 74 cm/sec. Internal carotid artery end diastolic velocity: 23 cm/sec. External carotid artery peak systolic velocity: 95 cm/sec. ICA/CCA peak systolic ratio: 0.7 . Finch scale imaging description: No plaque Percent internal carotid artery stenosis: Fully patent . Vertebral artery: Flow direction is antegrade. IMPRESSION: 1. Less than 50% stenosis of the origin of the right internal carotid artery. 2. Left internal carotid artery is fully patent. Dictated by: Sadia Azevedo MD, PhD on 07/21/2021 at 8:36 Approved by: Sadia Azevedo MD, PhD on 07/21/2021 at 8:38
--- NOTE | 2021-07-21 05:42 | PC.ADMIT ---
[email or web address] Admission Note: Patient admitted to AC unit at 20:20 for TIA observation. Patient is an 80 yr old male, DNR. Alert and oriented, x 4, able to make needs known. NIH 0. Oriented to room and call light. Patient is a high fall risk, bed alarm activated. Tele initiated on tele #9, ICU notified. VSS, afebrile. The patient,Gregg Lopez,80 y/o, was given written information regarding hospital policies, unit procedures and contact persons. Patient's smoking status: Never smoker. Vital Signs - 8 hr 07/20/21 21:52 07/21/21 01:14 07/21/21 02:45 Temperature Pulse Rate 75 72 Respiratory Rate 21 Blood Pressure Pulse Oximetry 96 96 96 07/21/21 05:00 07/21/21 05:14 Temperature 98.8 F Pulse Rate 76 Respiratory Rate 16 Blood Pressure 115/65 Pulse Oximetry 98 98
[2021-07-21] MEDS: DULOXETINE 30 MG CAPSULE PO (09:56)
[2021-07-21] MEDS: ASPIRIN EC 81 MG TABLET PO (09:56)
[2021-07-21] MEDS: PANTOPRAZOLE DR 20 MG TABLET PO (09:56)
--- NOTE | 2021-07-21 10:04 | OT.IP.EVAL ---
Past Medical History (Last Reviewed 07/20/21 @ 21:12 by Robert Del Rosario MD) DJD of both shoulders History of lumbar fusion Paronychia of toe Right knee DJD Surgical History (Last Reviewed 07/20/21 @ 21:12 by Robert Del Rosario MD) History of carpal tunnel repair History of lumbar fusion Status post coronary artery bypass graft Status post rotator cuff repair Occupational Therapy Inpatient Evaluation/Re-Eval M1 PT/OT-IP Prior Functional Status Start: 07/21/21 11:04 Freq: NEEDED Status: Active Protocol: Document 07/21/21 11:04 [facility] (Rec: 07/21/21 11:25 [facility] [id number]) Medical Review Prior Functional Status Communication Independent Mobility and Gait Independent with no devices. Pt admits to having decreased balance and recently had a fall when coming out of a restaurant a couple of weeks ago. Activities of Daily Living and IADL's Completely independent with all ADL, IADL, and does his own medications. Social History Household Members spouse Living Arrangements House Number of Floors (Floors) One Floor Number of Stairs To Enter/Railing? 1 step from the garage and 2 steps with right rail going up from the front door. 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 M2 OT-IP Current Condition Start: 07/21/21 11:04 Freq: Status: Active Protocol: Document 07/21/21 11:04 [facility] (Rec: 07/21/21 11:25 [facility] [id number]) Occupational Therapy Current Condition Current Condition Evaluation Date 07/21/21 Treatment Diagnosis TIA Diagnosis Onset Date 07/20/21 M3 OT- IP Subjective and Pain Start: 07/21/21 11:04 Freq: Status: Active Protocol: Document 07/21/21 11:04 [facility] (Rec: 07/21/21 11:25 [facility] [id number]) OT- Subjective Occupational Therapy Visit Type Type Initial Evaluation Visit Start Time 09:24 Visit Stop Time 10:04 Total Visit Minutes 40 Occupational Therapy Visit Comments Patient Comments Pt agreed to work with OT. Patient/Caregiver Goals TO go home. OT Pain Assessment Pain When Pain Assessed At Rest Pain Present Pain Present Denied Pain M4 OT- IP ADL's Start: 07/21/21 11:04 Freq: Status: Active Protocol: Document 07/21/21 11:04 [facility] (Rec: 07/21/21 11:25 [facility] [id number]) OT WAF-Ewwv-Mymxsqh General Evaluation Self-Feeding Ability Independent OT ADL-Grooming General Evaluation Grooming Ability Independent Areas Needing Assistance Retrieving/Set-up of Grooming Items Comments OT Grooming Comments assist for set-up to open packages OT ADL-Oral Care General Eval Oral Care Ability Independent OT ADL-Dressing General Eval Lower Body Dressing Ability Independent Comments OT Dressing Comments Pt able to independently fredy/ doff his socks while seated. OT ADL-Toileting Comments OT Toileting Comments NOt performed. OT ADL-Bathing Comments OT Bathing Comments Not performed. M5 OT- IP IADL's Start: 07/21/21 11:04 Freq: Status: Active Protocol: Document 07/21/21 11:04 [facility] (Rec: 07/21/21 11:25 [facility] [id number]) OT-Instrumental Activities of Daily Living Home Safety Awareness Awareness of Need for Assistance at Home Decreased Awareness Ability to Problem Solve Emergency Able to Problem Solve Situations Medication Management Medication Management Comments Due to pt's decreased STM, may be helpful for his to supervise with medication needs. Money Management Money Management Caregiver Provides Assistance Meal Preparation Meal Preparation Comments Pt states he and his both do IADl needs. General Accounting Clerk General Accounting Clerk Comments Pt states he and his both do IADl needs. Driving Driving Concerns Identified Regarding Safety M6 OT- IP Functional Cognition Start: 07/21/21 11:04 Freq: Status: Active Protocol: Document 07/21/21 11:04 [facility] (Rec: 07/21/21 11:25 [facility] [id number]) Cognitive Factors Limiting Selfcare Function Cognitive Ability Level of Alertness Alert Patient Orientation Name,Age,Birthday,Month,Date, Year,Day of Week,Place, Situation Attention Span Ability Capable of Focused Attention, Capable of Sustained Attention Ability to Follow Commands Able to Follow One Step Commands Memory Description Short Term Impaired,Working Impaired Safety Awareness Underestimates Need for Assistance Problem Solving Ability Needs Assist to Identify Solutions Executive Function Ability Unable to Switch Focus,Unable to Filter Distractions,Unable to Organize Plans,Unable to Remember Details Cognitive Tests SLUMS Pt scored 16/20 which implies dementia. Pt having trouble hearing which may also affect his score and also not motivated at the end of the assessment. Pt not able to calculate 100-23, only able to recall 8 animals in one minute, able to recall 3/5 words after time passed, not able to repeat 3 or 4 digit number backwards, unable to draw the hour hands on the clock correctly, and able to answer 2/4 questions right after time passed. Cognitive Comments Cognitive Assessment Comments Pt scored 243 seconds and needing MAX A vc to complete the assessment on [place] [employer] part B. Pt's score implies severe deficits with visual attention, task switching, speed of processing, mental flexibility, and executive functioning. At this time strongly suggested to pt to not drive at this time. Pt having difficulty to read the clock and needing several looks before able to tell the right time. OT- Vision and Hearing OT- Vision Assessment Visual Acuity Glasses All The Time Visual Attentiveness WFL Occular Pursuits WFL Visual Henriquez WFL Vision Assessment Comments Pt is hard of hearing M7 OT- IP Mobility and Balance Start: 07/21/21 11:04 Freq: Status: Active Protocol: Document 07/21/21 11:04 [facility] (Rec: 07/21/21 11:25 [facility] [id number]) OT- Bed Mobility Assessment Rolling Type of Rolling Roll to Left Level of Assistance Standby Assistance Supine to Sit Supine to Sit Assist Standby Assistance Sit to Supine Sit to Supine Assist Standby Assistance Scooting Scooting to Edge of Bed Standby Assistance Scooting Up and Down in Bed Standby Assistance OT-Transfer Assessment Sit to and From Stand Sit to and from Stand Contact Guard Assistance Transfers Transfer Ability Contact Guard Assistance Technique Transfer Destination Bed Transfer Technique Stand Step Pivot Devices Transfer Assistive Devices None,Gait Belt Comments Mobility Comments CGA as pt a little unsteady on his feet with no device. Put the FWW in front of him to use and pt just lifting nup the walker when walking. FWW would be safer for pt to use, but pt not wanting to use the FWW. Pt admits to having decreased balance but not open to using the FWW at this time . OT- Balance Assessment Sitting Balance and Reactions Static Sitting Balance Ability Normal Dynamic Sitting Balance Ability Good Standing Balance and Reactions Static Standing Balance Ability Good Dynamic Standing Balance Ability Fair M8 OT- IP Objective Assessments Start: 07/21/21 11:04 Freq: Status: Active Protocol: Document 07/21/21 11:04 [facility] (Rec: 07/21/21 11:25 [facility] [id number]) OT Gross Range of Motion Upper Extremity Range of Motion Assessment Bilaterally Impaired OT- Coordination Assessment Upper Extremity Finger to Nose Test Within Functional Limits Comments Coordination Comments INtact for diadochokinesia OT-Muscle Tone Assessment Muscle Tone WNL Yes Comments Muscle Tone Comments Noted tremors when writing with his right hand. Pt not able to state whether his tremors were new or not. OT Sensation Assessment Comments Summary Comments Intact for light touch BUE M9 OT- IP Assessment and Plan Start: 07/21/21 11:04 Freq: Status: Active Protocol: Document 07/21/21 11:04 [facility] (Rec: 07/21/21 11:25 [facility] [id number]) OT Summary Assessment and Plan Potential Rehabilitation Potential Good Analytic Complexity at Evaluation Moderate Summary OT Impairments Strength,Balance,Coordination, Functional Cognition, Functional Mobility,Grooming, Dressing,Toileting,Bathing, Toilet Transfers,Shower Transfers,Activity Tolerance Progress Towards Goals Slow Progress due to Medical Issues,Slow Progress due to Cognition Assessment Summary Pt here due to TIA and having difficulty with his functional cognition of short term memory and problem solving at this time. Pt's not present to clarify if pt's current cognitive status is his baseline. Pt also having decreased dynamic balance at this time and would benefit from outpt therapy needs. Goals Self-Feeding Goal Independent Grooming Goal Independent Dressing Goal Independent Toileting Goal Independent Bathing Goal Independent Toilet Transfer Goal Independent Shower Transfer Goal Independent Days to Meet Goals 7 Frequency of Treatment Frequency Of Treatment Once a Day Treatment Plan OT Treatment Plan ADL Training,Functional Cognition Training,Functional Mobility,Patient/Family Education,Discharge Planning Other Treatment Recommendations and Next shower Treatment Focus Discharge Recommendations OT Discharge Recommendations Home with 22/01 Assist Available,Outpatient PT Transportation Needs at Discharge Private Vehicle
--- NOTE | 2021-07-21 10:55 | PT.IIE ---
Surgical History (Last Reviewed 07/20/21 @ 21:12 by Robert Del Rosario MD) History of carpal tunnel repair Status post coronary artery bypass graft Status post rotator cuff repair Medical History (Last Reviewed 07/20/21 @ 21:12 by Robert Del Rosario MD) DJD of both shoulders Paronychia of toe Right knee DJD Physical Therapy Inpatient Evaluation/Re-Eval M1 PT/OT-IP Prior Functional Status Start: 07/21/21 11:30 Freq: NEEDED Status: Active Protocol: Document 07/21/21 10:55 [facility] (Rec: 07/21/21 11:38 [facility] [id number]) Medical Review Prior Functional Status Medical History Reviewed Yes Communication able to make needs known Mobility and Gait pt stated that he is independent with all mobilities and ambulation without AD Social History Household Members spouse Living Arrangements House Number of Floors (Floors) One Floor Number of Stairs To Enter/Railing? 1 step to enter the house Home Environment High Toilet,Walk in Shower Home Equipment Front Wheel Walker,Shower Seat without Backrest,Grab Bars In Shower M2 PT-IP Current Condition Start: 07/21/21 11:30 Freq: NEEDED Status: Active Protocol: Document 07/21/21 10:55 [facility] (Rec: 07/21/21 11:38 [facility] [id number]) Physical Therapy Current Condition Current Condition Evaluation Date 07/21/21 Treatment Diagnosis TIA; difficulty in walking Onset Date 07/20/21 M3 PT-IP Subjective Start: 07/21/21 11:30 Freq: NEEDED Status: Active Protocol: Document 07/21/21 10:55 [facility] (Rec: 07/21/21 11:38 [facility] [id number]) Subjective Physical Therapy Visit Type Type Initial Evaluation Visit Start Time 10:55 Visit Stop Time 11:10 Total Visit Minutes 15 Number of [place] [employer] OR TRAP Visits 0 Physical Therapy Visit Comments Patient Comments agreeable to do PT Therapy Pain Assessment Pain Present Pain Present Denied Pain M4 PT-IP Mobility and Gait Start: 07/21/21 11:30 Freq: NEEDED Status: Active Protocol: Document 07/21/21 10:55 [facility] (Rec: 07/21/21 11:38 [facility] [id number]) PT-Bed Mobility Assessment Supine to Sit Supine to Sit Independent Sit to Supine Sit to Supine Independent PT-Transfer Assessment Sit to and From Stand Sit to and from Stand Standby Assistance Equipment Transfer Assistive Device None,Gait Belt Orthotic/Prosthetic Devices or Brace: No Comments Mobility Comments pt completed supine to sit independent. Pt is impulsive. cued and educated regarding safety. completed sit to stand from EOB SBA and ambulated in room without AD SBA to occasional CGA. presents with antalgic gait with increase lateral trunk lean on R with increase R knee flexion. pt agreed to ambulate in the hallway and completed ~ 200 ft without AD SBA to CGA. completed up/down platform step CGA and cues. cued for safety as pt can be impulsive. ambulated back to his room SBA to CGA. requested to go back to bed and completed sit to supine independent. call light and table placed within reach. Gait Assessment Gait Gait Assistance Required: Standby Assistance,Contact Guard Assist Distance (Feet) 200 Able to Maintain Weight Bearing Status Yes During Gait Assistive Devices Assistive Device None,Gait Belt Orthotic/Prosthetic Devices or Brace: No Gait Deviations General Gait Pattern Antalgic,Decreased Stride Length,Decreased Feet Clearance,Lateral Trunk Lean Factors Limiting Gait Function Factors Limiting Gait Function Decreased Activity Tolerance, Decreased Strength,Poor Balance,Poor Safety Awareness Stair Climbing Assessment Evaluation Level of Assist On Stairs Contact Guard Assistance Devices Stair Climbing Assistive Devices None Technique/Endurance Stair Climbing Direction Ascend and Descend Stair Climbing Technique Step to Step Number of Steps Climbed 1 Query Text: Stair Climbing Set # Repetitions (reps) 2 PT-Balance Assessment Sitting Balance and Reactions Static Sitting Balance Ability Good Dynamic Sitting Balance Ability Good Standing Balance and Reactions Static Standing Balance Ability Good Dynamic Standing Balance Ability Fair Device Used without AD M5 PT-IP Objective Assessments Start: 07/21/21 11:30 Freq: NEEDED Status: Active Protocol: Document 07/21/21 10:55 [facility] (Rec: 07/21/21 11:38 [facility] [id number]) Orientation Orientation/Cognition Level of Alertness Alert Orientation Name Safety Awareness Decreased Safety Awareness Memory Description No Deficits Noted Gross Range of Motion Lower Extremity ROM Assessment Within Functional Limits Strength Lower Extremity Strength Assessment Within Functional Limits Muscle Tone Muscle Tone WNL Yes M6 PT-IP Treatment Start: 07/21/21 11:30 Freq: NEEDED Status: Active Protocol: Document 07/21/21 10:55 [facility] (Rec: 07/21/21 11:38 [facility] [id number]) Physical Therapy Treatment Education Education Provided Safety M7 PT-IP Assessment and Plan Start: 07/21/21 11:30 Freq: NEEDED Status: Active Protocol: Document 07/21/21 10:55 [facility] (Rec: 07/21/21 11:38 [facility] [id number]) PT Summary Assessment and Plan Potential Rehabilitation Potential Good Status of Condition at Evaluation Stable Summary Impairments Pain,ROM,Strength,Balance, Coordination,Sensation,Tone, Cognition,Bed Mobility, Transfers,Gait,Activity Tolerance Assessment Summary pt requiring SBA to CGA with ambulation without AD. pt is impulsive and has decrease safety awareness affecting mobility. pt plans to go home and spouse to assist him. pt may go home when medically stable. Goals Transfer Goal Independent Gait Goal Independent Gait Distance 300 Other Goals up/down 1 step mod I Days to Meet Goals 3 Frequency of Treatment Frequency Of Treatment Once a Day Treatment Plan Physical Therapy Treatment Plan Bed Mobility Training,Transfer Training,Gait Training, Therapeutic Exercise,Balance Retraining,Discharge Planning, Neuromuscular Re-ed, Coordination Retraining Other Recommendations and Next Treatment standing balance activities Focus without AD; stair climbing Recommendations To Nursing Amount of Assist Needed 1 Person Assist Discharge Recommendations PT Discharge Recommendations Home with Assistance, Outpatient PT Transportation Needs at Discharge Private Vehicle
[2021-07-21] MEDS: ACETAMINOPHEN 325 MG TABLET 650 MG PO (11:56)
--- NOTE | 2021-07-21 13:14 | ST.IPSCREEN ---
Order received. Medical records indicate initial word finding problems and confusion have resolved and that pt is back to baseline. Speech, language and swallowing abilities screened with pt in his room during breakfast No s/sx of communication or swallowing difficulty observed. Pt able to relate sequence of events leading to hospitalization. Will discharge order.
--- NOTE | 2021-07-21 13:19 | CM.DANOTE ---
Pt completed MRI & ECHO Orders for Discharge received HL discontinued intact. Tele D/C'd Home instructions & RX given Pt escorted by staff via W/C to waiting vehicle.
--- NOTE | 2021-07-21 13:40 | P.DS_ITS ---
History of Present Illness History of Present Illness Chief complaint: sudden onset of confusion Narrative: Per Dr. Del Rosario: Patient is an 80-year-old male nonsmoker with history of GERD but bipolar 1 disease hyperlipidemia presents with his chief complaint of sudden onset of confusion and difficulty in finding words.? Patient was in his usual state health until approximately 4:00 a.m. today when he noticed that he was having trouble finding words and was making no sense talking to his .? He could r emember the event almost completely.? He apparently was having no real other symptoms.? He was not dizzy or lightheaded.? He felt like he knew everything was happen in.? He had no visual changes.? He notices no motor or sensory changes.? Him and his had a discussion on whether not he should go to the hospital.? He slowly started to improve.? He was brought to the emergency room.? As he was in the emergency room it almost completely recovered and by the time the emergency room evaluation was ovary felt like he was back to his normal self.? He had no other significant changes.? Patient did have a fall about a week ago in which he was seen in the emergency room.? Scanning both had neck at that time were negative.? He did have an activated code stroke.? At the time of my evaluation he was feeling completely normal.? Would like to go home.? Had no other changes. Patient denies any history of coronary artery disease.? No history of atrial fibrillation.? He has had no shortness of breath chest pain palpitations or other changes.? [place] like he was in his usual state health.? He does have a history of hyperlipidemia is not been treated.? Patient otherwise has no new changes.? He has has no chest pain no shortness of breath no dizziness lightheadedness or other changes.? He denies any fevers chills cough abdominal pain change in urine or bowel function.? Past medical history is really significant only for depression.? Otherwise he has a history of coronary artery disease. Discharge Providers Provider Date of admission: 07/20/21 19:14 Discharge Date: 07/21/21 Primary care physician: Robert Echols MD Consults: 07/20/21 21:14 Consult to Discharge Planning Routine Comment: Consult to Occupational Therapy Evaluate & Treat Comment: Physician Instructions: Evaluate and treat Consult to Physical Therapy Evaluate & Treat Comment: Physician Instructions: Evaluate and Treat Consult to Speech Therapy Evaluate & Treat Comment: Physician Instructions: Evaluate and treat Discharge provider: Cristobal Pearce MD Summary Hospital Course Discharge Diagnosis: 1. TIA 2. Hypertension 3. Hyperlipidemia 4. Bipolar disease Hospital Course: Mr. Lopez came in to the hospital after an episode with word finding difficulty. This was nearly completely resolved in the ED and then resolved after this. He did have CT head and CT angio head/neck which showed no stroke and no large vessel disease. MRI confirmed no stroke, and ECHO showed no acute process. He had no evidence on afib on tele or EKG. He was discharged on aspirin and statin for a TIA and back to his normal. He did have elevated blood pressure and should follow up with his PCP, as we will hold this in the acute setting after a neurologic event. As he is started on aspirin he is requested to be careful with nsaid use. Exam Vital Signs (past 8 hours): Oxygen Delivery Method Room Air Oxygen Flow Rate 0 Narrative Exam Narrative: GEN: no acute distress CV: regular rate and rhythm PULM: clear bilaterally Objective Labs Result Diagrams: 07/20/21 17:05 07/20/21 17:05 [facility] Medical History DJD of both shoulders Paronychia of toe Right knee DJD Surgical History History of carpal tunnel repair History of lumbar fusion Status post coronary artery bypass graft Status post rotator cuff repair Family History Mother Osteoporosis Social History household members: spouse Smoking Status: Never smoker alcohol intake: current Discharge Plan Discharge Plan Patient Disposition: Home Provider Discharge Comment: Mr. Lopez came in to the hospital with difficulty speaking. His MRI showed no evidence of stroke. He was given a prescription for aspirin and atorvastatin to reduce his risk of stroke. He is recommended to stop his diclofenac because it can lead to ulcers when used with aspirin. Discharge orders & Medications Prescriptions: New atorvastatin 40 mg tablet 40 mg PO BEDTIME Qty: 30 0RF aspirin 81 mg tablet,delayed release (DR/EC) 81 mg PO DAILY Qty: 30 0RF Continued lithium carbonate 150 mg capsule 300 mg PO HS Qty: 180 1RF Rx Instructions: Patient is taking 300 mg (2 caps) at bedtime duloxetine 30 mg capsule,delayed release(DR/EC) 60 mg PO BEDTIME 0RF lamotrigine [Lamictal] 100 mg tablet 150 mg PO BEDTIME 0RF duloxetine 30 mg capsule,delayed release(DR/EC) 30 mg PO QAM 0RF acetaminophen [Tylenol Extra Strength] 500 mg tablet 1,000 mg PO TID PRN (Reason: Pain (Scale Score 1-3)) 0RF omeprazole 20 mg capsule,delayed release(DR/EC) 20 mg PO BID 0RF Discontinued diclofenac sodium 75 mg tablet,delayed release (DR/EC) 75 mg PO BID 0RF Follow up/Referrals: Robert Echols MD [Primary Care Provider] - Diet/Activity/Treatments Diet: Regular Discharge Data Primary Care Provider: Robert Echols Attending Provider: Cristobal Pearce VTE Deep Vein Thrombosis/Pulmonary Embolism Present on Admission: No
[2021-07-25 13:58] LABS: Lamotrigine Lamictal 1.2 ug/mL (2.0-20.0)
== END 2021-07-21 13:22 | disposition home or self-care (01) ==
LOC: ED 19:04 → AC 19:15
PROVIDERS: Admitting Provider Internal Medicine; Emergency Provider Emergency Medicine; Family Provider Internal Medicine; PCP Internal Medicine; Referring Provider Emergency Medicine; Visit Provider Internal Medicine
DX: G45.9 Transient cerebral ischemic attack, unspecified (principal); K21.9 Gastro-esophageal reflux disease without esophagitis; E78.5 Hyperlipidemia, unspecified; F31.9 Bipolar disorder, unspecified; I10 Essential (primary) hypertension; I25.10 Atherosclerotic heart disease of native coronary artery without angina pectoris; R29.700 NIHSS score 0; Z20.822 Contact with and (suspected) exposure to COVID-19
CPT/HCPCS: 36415; 70450; 70496; 70498; 70551; 80053; 80175; 80178; 80305; 81003; 82962; 85025; 87635; 93005; 93010; 93306; 93880; 94760; 96360; 96361; 97161; 97166; 97530; 99285; C9803; G0378; Q9967

== ENCOUNTER → 2021-08-01 13:50 | Outpatient (CLI) | payer OTHER, SELFPAY ==
[2021-07-20 20:24] VITALS: BMI 28.8
--- NOTE | 2021-08-01 | DI.RAD.S_ITS ---
PROCEDURE: XR HIP W PEL IF DONE RT 2V INDICATIONS: Right hip pain TECHNIQUE: AP pelvis with lateral view(s) of the right hip(s). COMPARISON: [facility], , XR HIP W PEL IF DONE RT 2V, 08/31/2020, 15:53. FINDINGS: Bones: Mild to moderate right hip joint osteoarthritic changes are seen with superior joint space narrowing and subchondral sclerosis. No evidence of avascular necrosis of femoral head. No fractures or dislocations. Pelvic ring appears intact. No suspicious bony lesions. Fusion hardware in visualized lower lumbar spine at L4-5 level is again seen. Soft tissues: The visualized bowel gas pattern is normal. No suspicious soft tissue calcifications. IMPRESSION: New line [id number] right hip joint osteoarthritis. No hip fracture or dislocation. No evidence of avascular necrosis. Dictated by: Prashanth Troy M.D. on 08/01/2021 at 15:53 Approved by: Prashanth Troy M.D. on 08/01/2021 at 15:54
== END ==
PROVIDERS: Family Provider Internal Medicine; PCP Internal Medicine; Referring Provider Internal Medicine; Visit Provider Internal Medicine
DX: M25.551 Pain in right hip (principal); M16.11 Unilateral primary osteoarthritis, right hip
CPT/HCPCS: 73502

== ENCOUNTER → 2022-03-01 08:18 | Outpatient (CLI) | payer OTHER, SELFPAY ==
--- NOTE | 2022-03-01 | DI.US.S_ITS ---
PROCEDURE: US CAROTID DOPPLER BI INDICATIONS: Dizziness and giddiness TECHNIQUE: Color and pulse Doppler interrogation was performed of both carotid systems, with image documentation and velocity measurements. COMPARISON: None. FINDINGS: Stenosis calculations are based on SRU (Society of Radiologists in Ultrasound) criteria. The flow velocities and the arterial waveforms are normal within both carotid arterial systems. Atherosclerotic plaque is seen on both sides. The estimated degree of internal carotid artery stenosis is less than 50%. Antegrade flow is confirmed within both vertebral arteries. IMPRESSION: No hemodynamically significant stenosis is seen. No significant change from the prior. Atherosclerotic plaque is noted bilaterally. Dictated by: Christiano Martell M.D. on 03/01/2022 at 8:57 Approved by: Christiano Martell M.D. on 03/01/2022 at 8:57
== END ==
PROVIDERS: Family Provider Internal Medicine; PCP Internal Medicine; Referring Provider Internal Medicine; Visit Provider Internal Medicine
DX: R42 Dizziness and giddiness (principal); I65.23 Occlusion and stenosis of bilateral carotid arteries
CPT/HCPCS: 93880

== ENCOUNTER → 2023-01-18 15:29 | Outpatient (CLI) | payer OTHER, SELFPAY ==
--- NOTE | 2023-01-18 15:30 | DI.MRI.S_ITS ---
PROCEDURE: MR CERVICAL SPINE WO CON INDICATIONS: Progressive cervical myeloradiculopathy TECHNIQUE: Noncontrast sagittal T1 spin echo and T2 fast spin echo, sagittal STIR, foraminal oblique sagittal T2 fast spin echo, and axial gradient echo or T2 fast spin echo through the cervical spine. COMPARISON: CT, CT CERVICAL SPINE WO CON, 07/10/2021, 19:48. FINDINGS: Image quality: Excellent. Alignment and Curvature: There is 2 mm anterolisthesis of C2 on C3, 6 mm C3 on C4, 4 mm C7 on T1, 5 mm T1 on T2, 2 mm T3 on T4 as well as 5 mm retrolisthesis of C4 on C5 and 3 mm retrolisthesis of C6 on C7. Bone Marrow: Marrow demonstrates normal overall signal. Spinal Cord: Visualized spinal cord has normal size and signal. No cerebellar tonsillar herniation. Paraspinous Soft Tissues: No paravertebral masses. Prevertebral soft tissues are normal in thickness. Discs: Multilevel moderate to severe disc desiccation. C2-C3: Mild disc bulge with moderate spinal stenosis. Moderate bilateral foraminal narrowing with uncovertebral hypertrophy. C3-C4: Mild disc bulge with severe spinal stenosis and canal compression. Severe left and moderate right foraminal narrowing with uncovertebral hypertrophy. C4-C5: Mild disc bulge with severe spinal stenosis and canal compression. Severe bilateral foraminal narrowing, left greater than right with uncovertebral hypertrophy. C5-C6: Mild disc bulge with moderate to severe spinal stenosis. Moderate to severe bilateral foraminal narrowing, left greater than right with uncovertebral hypertrophy. C6-C7: Mild disc bulge with moderate spinal stenosis. Moderate to severe right and moderate left foraminal narrowing with uncovertebral hypertrophy. C7-T1: Mild disc bulge with moderate spinal stenosis. Moderate bilateral foraminal narrowing with uncovertebral hypertrophy IMPRESSION: Multilevel anterior/retrolisthesis. Multilevel moderate to severe spinal stenosis most significant at C3-4 and C4-5 secondary to disc bulges with contributing effect of anterior/retrolisthesis. Multilevel moderate to severe foraminal narrowing most significant C3-4, C4-5 secondary to uncovertebral arthropathy. Dictated by: Valerie Garrett M.D. on 01/18/2023 at 16:56 Approved by: Valerie Garrett M.D. on 01/18/2023 at 17:00
== END ==
PROVIDERS: Family Provider Internal Medicine; PCP Student in an Organized Health Care Education/Training Program; Referring Provider Physical Medicine & Rehabilitation; Visit Provider Physical Medicine & Rehabilitation
DX: M47.22 Other spondylosis with radiculopathy, cervical region (principal); M50.11 Cervical disc disorder with radiculopathy, high cervical region; M43.12 Spondylolisthesis, cervical region; M48.02 Spinal stenosis, cervical region
CPT/HCPCS: 72141

== ENCOUNTER → 2023-05-07 09:40 | Outpatient (CLI) | payer OTHER, SELFPAY ==
--- NOTE | 2023-05-07 09:43 | DI.RAD.S_ITS ---
PROCEDURE: XR SHOULDER LT MIN 2V INDICATIONS: LEFT SHOULDER PAIN TECHNIQUE: 3 views of the shoulder were acquired. COMPARISON: [facility], , SHOULDER MINIMUM 2VIEW RIGHT, 05/24/2012, 14:19. FINDINGS: Bones: No fractures or dislocations. No suspicious bony lesions. Visualized ribs appear intact. Tendon anchors in the humeral head. Periarticular osteophyte formation at the acromioclavicular and glenohumeral joint. Soft tissues: Calcification within the rotator cuff. IMPRESSION: 1. Postsurgical sequelae. 2. Osteoarthritis. 3. Calcific tendinitis of the rotator cuff Dictated by: Bella Gu M.D. on 05/07/2023 at 11:42 Approved by: Bella Gu M.D. on 05/07/2023 at 11:47
--- NOTE | 2023-05-07 09:43 | DI.RAD.S_ITS ---
PROCEDURE: XR SHOULDER RT MIN 2V INDICATIONS: RIGHT SHOULDER PAIN TECHNIQUE: 3 views of the shoulder were acquired. COMPARISON: [facility], , SHOULDER MINIMUM 2VIEW RIGHT, 05/24/2012, 14:19. FINDINGS: Bones: No fractures or dislocations. No suspicious bony lesions. Visualized ribs appear intact. Tendon anchors within the humeral head. Periarticular osteophyte formation at the acromioclavicular and glenohumeral joints. Soft tissues: Calcification within the rotator cuff. IMPRESSION: 1. Osteoarthritis. 2. Postsurgical sequelae. 3. Calcific tendinitis of the rotator cuff. Dictated by: Bella Gu M.D. on 05/07/2023 at 11:47 Approved by: Bella Gu M.D. on 05/07/2023 at 11:49
== END ==
PROVIDERS: Family Provider Internal Medicine; PCP Student in an Organized Health Care Education/Training Program; Referring Provider Physical Medicine & Rehabilitation; Visit Provider Physical Medicine & Rehabilitation
DX: M19.011 Primary osteoarthritis, right shoulder (principal); M19.012 Primary osteoarthritis, left shoulder; M75.32 Calcific tendinitis of left shoulder; M75.31 Calcific tendinitis of right shoulder; M25.512 Pain in left shoulder; M25.511 Pain in right shoulder
CPT/HCPCS: 73030

== ENCOUNTER → 2023-07-24 09:43 | Outpatient (CLI) | payer OTHER, SELFPAY ==
[2023-07-24 11:44] LABS: Add Manual Diff / Slide Review NO; Basophils Absolute Auto 0 /uL (0-100); Basophils Percent Auto 0.6 % (0-2); Eosinophils Absolute Auto 300 /uL (0-450); Eosinophils Percent Auto 3.9 % (2-4); Hemoglobin 14.3 g/dL (13.5-17.5); Lymphocytes Absolute Auto 1800 /uL (1100-4500); Lymphocytes Percent Auto 22.8 % (25-40); Mean Corpuscular HGB Conc 33.2 % (30-36); Mean Corpuscular Hemoglobin 31.4 PG (26-34); Mean Corpuscular Volume 94.6 fL (80-100); Monocytes Absolute Auto 700 /uL (0-900); Monocytes Percent Auto 8.6 % (3-14); Neutrophils Absolute Auto 4900 /uL (1500-7000); Neutrophils Percent Auto 64.1 % (50-75); Platelet Count 280 X10^3/uL (150-400); Red Blood Cell Count 4.55 X10^6/uL (4.5-5.9); Red Cell Distribution Width 14.5 % (11.6-14.8); White Blood Cell Count 7.7 X10^3/uL (4.5-11.0)
[2023-07-24 12:03] LABS: Alanine Aminotransferase 17 IU/L (<50); Albumin 4.5 g/dL (3.5-5.0); Albumin Globulin Ratio 1.5 (1.0-2.8); Alkaline Phosphatase 55 U/L (38-126); Aspartate Aminotransferase 31 IU/L (17-59); Bilirubin Total 0.9 mg/dL (0.2-1.3); Blood Urea Nitrogen 21 mg/dL (9-20); Calcium 9.8 mg/dL (8.4-10.2); Carbon Dioxide 27 mmol/L (22-32); Chloride 103 mmol/L (98-107); Cholesterol 220 mg/dL (140-199); Estimated Glomerular Filt Rate > 60 mL/min (>60); Globulin 3.1 g/dL (1.7-4.1); Glucose 107 mg/dL (80-110); HDL Cholesterol 56 mg/dL (40-60); HEMOLYSIS < 15 (0-50); LDL Cholesterol Calculated 128 mg/dL (<100); Sodium 137 mmol/L (137-145); Total Protein 7.6 g/dL (6.3-8.2); Triglycerides 181 mg/dL (35-150)
[2023-07-24 12:08] LABS: Lithium 0.3 mmol/L (0.6-1.2)
[2023-07-26 08:10] LABS: Lamotrigine Lamictal 2.6 ug/mL (2.0-20.0)
== END ==
PROVIDERS: Family Provider Internal Medicine; PCP Family Medicine; Referring Provider Family Medicine; Visit Provider Family Medicine
DX: F31.9 Bipolar disorder, unspecified (principal); Z79.899 Other long term (current) drug therapy; Z13.9 Encounter for screening, unspecified; E78.00 Pure hypercholesterolemia, unspecified
CPT/HCPCS: 36415; 80053; 80061; 80175; 80178; 85025

== ENCOUNTER → 2023-11-30 15:38 | Outpatient (CLI) | payer OTHER, SELFPAY ==
--- NOTE | 2023-11-30 15:39 | DI.US.S_ITS ---
PROCEDURE: US PERIPH VENOUS LOW EXTREM RT INDICATIONS: Pain/swelling right knee; possilbe lopez's cyst TECHNIQUE: Real-time imaging, as well as color and pulse Doppler interrogation, were performed of the lower extremity deep veins from the inguinal ligament to the popliteal fossa, with documentation of the visualized calf veins. COMPARISON: None. FINDINGS: The common femoral, femoral, popliteal, and the visualized calf veins are normally compressible, and free of intraluminal thrombus. Color and pulse Doppler demonstrate normal phasic intraluminal flow. There is normal augmentation response to distal compression maneuver. Note is made of a nonspecific probable calcification in the right popliteal fossa region. IMPRESSION: No findings of lower extremity deep venous thrombosis. Incidental nonspecific probable calcification noted in right popliteal fossa. Dictated by: Nash Elliott M.D. on 12/03/2023 at 16:11 Approved by: Nash Elliott M.D. on 12/03/2023 at 16:13
== END ==
PROVIDERS: Family Provider Internal Medicine; PCP Family Medicine; Referring Provider Family Medicine; Visit Provider Family Medicine
DX: M17.11 Unilateral primary osteoarthritis, right knee (principal)
CPT/HCPCS: 76882; 93971

== ENCOUNTER 2023-12-13 11:08 | Emergency (ER) | payer OTHER, SELFPAY ==
[2023-12-13] VITALS (10 sets, daily range): BP systolic 141–190; BP diastolic 81–101; PULSE 62–79; RESP 14; TEMP 36.4; O2SAT 95–99; BMI 31.9
--- NOTE | 2023-12-13 16:11 | PC.NURSE ---
pt states that his knee is filled with fluid, this has happened one time before and Dr. Rubio drained it. The right knee does appear to be a little swollen compared to the left
--- NOTE | 2023-12-13 17:01 | DI.RAD.S_ITS ---
PROCEDURE: XR KNEE RT 3V INDICATIONS: knee pain/swelling TECHNIQUE: 3 views of the knee were acquired. COMPARISON: [facility], , XR KNEE RT 3V, 09/12/2019, 13:13. [facility], , KNEE 3V RIGHT, 12/13/2015, 14:46. FINDINGS: Bones: Unicondylar right knee arthroplasty. Degenerative changes again seen in the lateral and patellofemoral compartments. Soft tissues: Knee effusion and periarticular and intra-articular ossifications. IMPRESSION: Unicondylar right knee arthroplasty. Degenerative changes in the patellofemoral and lateral compartments. Periarticular and likely intra-articular ossifications with effusion are present. If there is further concern, consider cross-sectional imaging or nuclear medicine bone scan. Dictated by: Lele Marx M.D. on 12/13/2023 at 17:33 Approved by: Lele Marx M.D. on 12/13/2023 at 17:35
--- NOTE | 2023-12-13 18:38 | ED_ITS ---
HPI - Extremity Problem General Chief complaint: Extremity Problem,Nontraumatic Stated complaint: R leg pain, difficulty walking on it Time Seen by Provider: 12/13/23 17:56 Source: patient Mode of arrival: Wheelchair History of Present Illness HPI Narrative: Patient is an 82-year-old male here for evaluation of right leg pain/right knee pain. States he has been having difficulty with pain of his right knee for the past month. He also states that it is swelling. Is now having pain radiating up to his right groin and then down to his right ankle he has had a partial knee replacement on the right in the past. He denies any specific trauma several weeks ago with the symptoms started. No fevers. Has been taking Tylenol and also CBD gummies which do seem to help his discomfort somewhat. Related Data Home Medications Medication Instructions Recorded Confirmed acetaminophen 500 mg tablet 1,000 mg PO TID PRN Pain (Scale 09/15/19 11/01/23 (Tylenol Extra Strength) Score 1-3) omeprazole 20 mg capsule,delayed 20 mg PO BID 11/19/19 11/01/23 release lamotrigine 100 mg tablet 150 mg PO BEDTIME 07/20/21 11/01/23 (Lamictal) duloxetine 30 mg capsule,delayed 30 mg PO BID 05/14/23 11/01/23 release Previous Rx's Medication Instructions Recorded lithium carbonate 150 mg capsule 300 mg (2 x 150 mg) PO HS #180 caps 03/14/21 aspirin 81 mg tablet,delayed 81 mg PO DAILY #30 tabs 07/22/21 release [employer] Parking Permit #1 ea 02/12/23 celecoxib 200 mg capsule (Celebrex) 200 mg PO DAILY #90 caps 08/13/23 ezetimibe 10 mg tablet 10 mg PO DAILY #90 tabs 10/23/23 Allergies Allergy/AdvReac Type Severity Reaction Status Date / Time No Known Drug Allergies Allergy Verified 12/13/23 11:16 Review of Systems Constitutional Constitutional: Reports system reviewed and no additional complaints, except as documented Musculoskeletal Musculoskeletal: Reports system reviewed and no additional complaints, except as documented Integumentary/Breasts Skin/Breast: Reports system reviewed and no additional complaints, except as documented Neurologic Neurologic: Reports system reviewed and no additional complaints, except as documented Patient History Medical History Facet arthropathy, cervical Cervical radiculopathy Paronychia of toe 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 Surgical History History of bilateral knee arthroplasty History of lumbar fusion History of carpal tunnel repair Status post coronary artery bypass graft Status post rotator cuff repair Family History Mother Osteoporosis Social History household members: spouse Smoking Status: Never smoker alcohol intake: current Smoking Status: Never smoker alcohol intake frequency: holidays/special occasions only Substance Use Type: does not use Exam Initial Vital Signs Initial Vital Signs: Vital Signs Temperature 97.6 F 12/13/23 11:17 Pulse Rate 79 12/13/23 11:17 Respiratory Rate 14 12/13/23 11:17 Blood Pressure 141/92 H 12/13/23 11:17 Pulse Oximetry 98 12/13/23 11:17 Oxygen Delivery Method Room Air 12/13/23 11:17 Skin General: no rashes or lesions noted Neuro General: patient alert and patient awake Extrem Other: Mild effusion and discomfort with palpation of the right knee. Also some discomfort with flexion of the right knee. The rest of his right lower extremity is relatively unremarkable. Course Orders Ordered: ED Orders 12/13/23 17:01 XR knee RT 3V Stat Vital Signs Vital signs: Vital Signs - 8 hr 12/13/23 16:30 12/13/23 16:31 12/13/23 16:31 Pulse Rate 62 65 Blood Pressure 174/98 H Pulse Oximetry 95 97 12/13/23 17:00 12/13/23 17:00 12/13/23 17:30 Pulse Rate 64 66 Blood Pressure 174/91 H Pulse Oximetry 99 97 12/13/23 17:31 12/13/23 17:31 12/13/23 18:00 Pulse Rate 62 63 Blood Pressure 172/82 H Pulse Oximetry 96 99 12/13/23 18:01 12/13/23 18:01 12/13/23 18:30 Pulse Rate 67 68 Blood Pressure 184/81 H Pulse Oximetry 99 97 12/13/23 18:30 Pulse Rate Blood Pressure 179/96 H Pulse Oximetry MDM - Extremity (Nontraumatic) Imaging Data Extremity x-ray #1: Radiologist's Impression: PROCEDURE: XR KNEE RT 3V INDICATIONS: knee pain/swelling TECHNIQUE: 3 views of the knee were acquired. COMPARISON: [facility], , XR KNEE RT 3V, 09/12/2019, 13:13. [facility], , KNEE 3V RIGHT, 12/13/2015, 14:46. FINDINGS: Bones: Unicondylar right knee arthroplasty. Degenerative changes again seen in the lateral and patellofemoral compartments. Soft tissues: Knee effusion and periarticular and intra-articular ossifications. IMPRESSION: Unicondylar right knee arthroplasty. Degenerative changes in the patellofemoral and lateral compartments. Periarticular and likely intra-articular ossifications with effusion are present. If there is further concern, consider cross-sectional julieth ging or nuclear medicine bone scan. [facility] Narrative Medical decision making narrative: Low suspicion for DVT. X-ray shows no signs of fracture. Low suspicion for septic joint. I suspect that this is arthritis that is causing his discomfort. No fevers. He would potentially benefit from a referral to see Orthopedics to discuss options up to and including knee replacement. Patient can be safely discharged home out of the ER. He was given return. He expressed understanding and agreement. Discharge Plan Departure Patient Disposition: Home Clinical Impression: Arthritis Instructions: DI for Arthritis Activity Restrictions/Additional Instructions: X-ray today did not show any signs of a fracture or a dislocation. You can walk on your leg as tolerated. Contact your primary care doctor for a follow-up. You can also contact the orthopedic doctors with the number provided below for a follow-up. Prescriptions: No Action lithium carbonate 150 mg capsule 300 mg PO HS Qty: 180 1RF Rx Instructions: Patient is taking 300 mg (2 caps) at bedtime (DME) Disbled Parking Permit See Rx Instructions .Route .MEDSUPPLY Qty: 1 0RF Rx Instructions: As directed celecoxib [Celebrex] 200 mg capsule 200 mg PO DAILY Qty: 90 2RF ezetimibe 10 mg tablet 10 mg PO DAILY Qty: 90 3RF lamotrigine [Lamictal] 100 mg tablet 150 mg PO BEDTIME aspirin 81 mg tablet,delayed release (DR/EC) 81 mg PO DAILY Qty: 30 0RF acetaminophen [Tylenol Extra Strength] 500 mg tablet 1,000 mg PO TID PRN (Reason: Pain (Scale Score 1-3)) omeprazole 20 mg capsule,delayed release(DR/EC) 20 mg PO BID duloxetine 30 mg capsule,delayed release(DR/EC) 30 mg PO BID Referrals: Chepe Voss MD [Primary Care Provider] - Allison Mason MD [Physician] - Stand Alone Forms: Patient Portal/API
== END 2023-12-13 19:10 | disposition home or self-care (01) ==
PROVIDERS: Emergency Provider Emergency Medicine; Family Provider Internal Medicine; PCP Family Medicine
DX: M17.9 Osteoarthritis of knee, unspecified (principal)
CPT/HCPCS: 73562; 99281; 99283

== ENCOUNTER 2024-04-03 12:42 | Emergency (ER) | payer OTHER, SELFPAY ==
[2024-04-03] VITALS (12 sets, daily range): BP systolic 112–172; BP diastolic 62–87; PULSE 80–102; RESP 18–34; TEMP 37.7; O2SAT 91–95; BMI 31.8
--- NOTE | 2024-04-03 12:54 | DI.RAD.S_ITS ---
PROCEDURE: XR CHEST 1V INDICATIONS: Shortness of breath TECHNIQUE: One view of the chest was acquired. COMPARISON: None. FINDINGS: Surgical changes and devices: Bilateral shoulder anchors. Lungs and pleura: Lungs are clear. No pleural effusions or pneumothorax. Mediastinum: Mediastinal contours appear normal. Heart size is normal. Bones and chest wall: No suspicious bony lesions. Overlying soft tissues appear unremarkable. IMPRESSION: No acute cardiopulmonary abnormality is seen. Dictated by: Brian Akhtar M.D. on 04/03/2024 at 14:36 Approved by: Brian Akhtar M.D. on 04/03/2024 at 14:36
--- NOTE | 2024-04-03 12:54 | EKG_ITS ---
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
[2024-04-03 13:07] LABS: Add Manual Diff / Slide Review NO; Basophils Absolute Auto 100 /uL (0-100); Basophils Percent Auto 0.5 % (0-2); Eosinophils Absolute Auto 100 /uL (0-450); Eosinophils Percent Auto 0.5 % (2-4); Hematocrit 42.3 % (41-53); Lymphocytes Absolute Auto 1400 /uL (1100-4500); Lymphocytes Percent Auto 7.9 % (25-40); Mean Corpuscular HGB Conc 33.2 % (30-36); Mean Corpuscular Hemoglobin 31.1 PG (26-34); Mean Corpuscular Volume 93.9 fL (80-100); Monocytes Absolute Auto 1300 /uL (0-900); Monocytes Percent Auto 7.7 % (3-14); Neutrophils Absolute Auto 14500 /uL (1500-7000); Neutrophils Percent Auto 83.4 % (50-75); Platelet Count 294 X10^3/uL (150-400); Red Cell Distribution Width 14.1 % (11.6-14.8); White Blood Cell Count 17.4 X10^3/uL (4.5-11.0)
--- NOTE | 2024-04-03 13:07 | ED.SOB ---
HPI - SOB/Dyspnea General Chief Complaint: Shortness of Breath/Dyspnea Stated Complaint: worsening instability and SOB x3 days Time Seen by Provider: 04/03/24 12:48 Source: patient Mode of arrival: Wheelchair Limitations: no limitations History of Present Illness HPI Narrative: Patient is a 83-year-old male history of GERD, bipolar, hyperlipidemia comes into the ED from home for evaluation of shortness of breath cough ongoing persistent for the past 3 days. States he has been coughing with mild production of sputum denies any actual chest pain denies any headache visual disturbances fever chills nausea vomiting, pain or any other GI/ symptoms. States that he does have chronic right hip/leg pain which has gotten a little bit worse causing some mild instability but states that he has not worried about this he states that he is really here only for the shortness of breath and cough. Related Data Home Medications Medication Instructions Recorded Confirmed acetaminophen 500 mg tablet 1,000 mg PO TID PRN Pain (Scale 09/15/19 02/01/24 (Tylenol Extra Strength) Score 1-3) omeprazole 20 mg capsule,delayed 20 mg PO BID 11/19/19 02/01/24 release lamotrigine 100 mg tablet 150 mg PO BEDTIME 07/20/21 02/01/24 (Lamictal) duloxetine 30 mg capsule,delayed 30 mg PO BID 05/14/23 02/01/24 release Previous Rx's Medication Instructions Recorded lithium carbonate 150 mg capsule 300 mg (2 x 150 mg) PO HS #180 caps 03/14/21 aspirin 81 mg tablet,delayed 81 mg PO DAILY #30 tabs 07/22/21 release [employer] Parking Permit #1 ea 02/12/23 ezetimibe 10 mg tablet 10 mg PO DAILY #90 tabs 10/23/23 celecoxib 200 mg capsule (Celebrex) 200 mg PO DAILY #90 caps 12/19/23 Allergies Allergy/AdvReac Type Severity Reaction Status Date / Time No Known Drug Allergies Allergy Verified 02/01/24 13:35 Review of Systems Review of Systems Narrative: General: Denies fever, chills, weight loss HEENT: Denies headache, eye drainage, eye irritation, head trauma, sore throat, voice change Cardiovascular: Denies any chest pain, palpitations, shortness of breath, tachycardia Respiratory: Positive for cough and shortness of breath GI/: Denies any abdominal pain, nausea, vomiting, diarrhea, bright red blood per rectum, melanotic stools, urinary frequency, urinary retention, dysuria, hematuria MSK: Denies any joint pain, muscle pains, swelling Skin: Denies any rashes, lesions, discoloration Neuro: Denies any headache, lightheadedness, dizziness, fainting, weakness Psych: Denies SI/HI Patient History Medical History Facet arthropathy, cervical Cervical radiculopathy Paronychia of toe 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 Surgical History History of bilateral knee arthroplasty History of lumbar fusion History of carpal tunnel repair Status post coronary artery bypass graft Status post rotator cuff repair Family History Mother Osteoporosis Social History household members: spouse Smoking Status: Never smoker alcohol intake: current Smoking Status: Never smoker alcohol intake frequency: 0-2 drinks per day Substance Use Type: does not use Exam Narrative Exam Narrative: General: Cooperative, comfortable, well-developed, not in acute distress HEENT: Normocephalic, atraumatic, PERRLA, normal sclera, eyelids normal, Neck: Active full range of motion, atraumatic Chest: Normal to inspection, negative crepitus, no overlying erythema ecchymosis Respiratory: Normal respiratory effort, not in acute respiratory distress, clear to auscultation bilaterally negative cough, wheeze, tachypnea, rhonchi, rales Cardiology: Regular rate rhythm negative gallop, murmur, rubs GI/: Normal to inspection, soft, nonrigid, no tenderness to palpation, exam deferred MSK: Full range of active range of motion of all 4 extremities, atraumatic Skin: No rashes lesions noted Neuro: Alert awake oriented x3, moves all 4 extremities spontaneously, cranial nerves intact, able to answer all questions appropriately follows commands appropriately Psych: Cooperative, negative suicidal or homicidal ideations Initial Vital Signs Initial Vital Signs: Vital Signs Pulse Rate 83 04/03/24 12:48 Pulse Oximetry 94 04/03/24 12:48 Course Orders Ordered: ED Orders 04/03/24 12:54 XR chest 1V Stat EKG-12 Lead Stat Measure peak expiratory flow ONCE RT Consult Eval and Treat NOW 04/03/24 12:58 Complete Blood Count AUTO DIFF Stat Comprehensive Metabolic Panel Stat Lactate (Lactic Acid) Stat NT-proBNP (BNP-Adult 18+) Stat Prothrombin Time INR Stat Troponin I Stat Albuterol (Albuterol 2.5 Mg/3 Ml Neb (Adult)) 2.5 mg INH [id number] PRN PRN Reason: Shortness Of Breath Albuterol/Ipratropium (Albuterol/Ipratropium 3 Ml Ampul) 3 ml INH Q1H PRN PRN Reason: Shortness Of Breath Last Admin: 04/03/24 13:35 Dose: 3 ml Documented By: CYNDI Discontinued Medications Benzonatate (Benzonatate 100 Mg Capsule) 100 mg PO NOW ONE Stop: 04/03/24 13:15 Last Admin: 04/03/24 13:22 Dose: 100 mg Documented By: CATHERINE Doxycycline Hyclate (Doxycycline Hyclate 100 Mg Tablet) 100 mg PO NOW ONE Stop: 04/03/24 16:52 Vital Signs Vital signs: Vital Signs - 8 hr 04/03/24 12:48 04/03/24 12:50 04/03/24 13:00 Temperature 99.9 F H Pulse Rate 83 83 Respiratory Rate 28 H Blood Pressure 168/87 H 172/76 H Pulse Oximetry 94 95 Oxygen Delivery Method Room Air 04/03/24 13:00 04/03/24 13:30 04/03/24 13:31 Temperature Pulse Rate 80 90 Respiratory Rate 34 H 21 Blood Pressure 130/72 Pulse Oximetry 94 94 Oxygen Delivery Method 04/03/24 13:31 04/03/24 13:36 04/03/24 14:00 Temperature Pulse Rate 88 87 Respiratory Rate 21 18 Blood Pressure 138/74 Pulse Oximetry 94 92 Oxygen Delivery Method Room Air 04/03/24 14:00 Temperature Pulse Rate 96 H Respiratory Rate 22 Blood Pressure Pulse Oximetry 92 Oxygen Delivery Method MDM - SOB/Dyspnea Differential Diagnosis Differential diagnosis: Likely congestive heart failure, community acquired pneumonia and other (COVID, flu) Lab Data 04/03/24 12:58 04/03/24 12:58 Labs: Lab Results 04/03/24 Range/Units 12:58 WBC 17.4 H (4.5-11.0) X10^3/uL RBC 4.50 (4.5-5.9) X10^6/uL Hgb 14.0 (13.5-17.5) g/dL Hct 42.3 (41-53) % MCV 93.9 (80-100) fL MCH 31.1 (26-34) PG MCHC 33.2 (30-36) % RDW 14.1 (11.6-14.8) % Plt Count 294 (150-400) X10^3/uL Neut % (Auto) 83.4 H (50-75) % Lymph % (Auto) 7.9 L (25-40) % Martin % (Auto) 7.7 (3-14) % Eos % (Auto) 0.5 L (2-4) % Baso % (Auto) 0.5 (0-2) % Neut # (Auto) 77052 H (5092-5729) /uL Lymph # (Auto) 1400 (7975-0469) /uL Martin # (Auto) 1300 H (0-900) /uL Eos # (Auto) 100 (0-450) /uL Baso # (Auto) 100 (0-100) /uL PT 12.8 H (9.4-12.5) SECONDS INR 1.1 (0.9-1.3) Sodium 137 (137-145) mmol/L Potassium 4.0 (3.4-5.1) mmol/L Chloride 103 (98-107) mmol/L Carbon Dioxide 25 (22-32) mmol/L BUN 19 (9-20) mg/dL Creatinine 0.91 (0.66-1.25) mg/dL Estimated GFR > 60 (>60) mL/min BUN/Creatinine Ratio 20.9 (6-22) Glucose 135 H (80-110) mg/dL Lactate 1.5 (0.7-2.1) mmol/L Calcium 9.8 (8.4-10.2) mg/dL Total Bilirubin 0.9 (0.2-1.3) mg/dL AST 27 (17-59) IU/L ALT 17 (<50) IU/L Alkaline Phosphatase 56 (38-126) U/L Troponin I < 0.012 (0.01-0.034) ng/mL NT-Pro-B Natriuret Pep 154 (<450) pg/mL Total Protein 7.4 (6.3-8.2) g/dL Albumin 4.6 (3.5-5.0) g/dL Globulin 2.8 (1.7-4.1) g/dL Albumin/Globulin Ratio 1.6 (1.0-2.8) ECG Data Attestation: I personally reviewed and interpreted this ECG as follows: Interpretation: EKG interpreted ED physician sinus at 82 beats per minute, QTC 415, occasional PVC noted normal axis nonspecific ST changes no STEMI MDM Narrative Medical decision making narrative: Patient is a 83-year-old male history of GERD, bipolar, hyperlipidemia coming in for cough shortness of breath ongoing for the past 3 days. Denies any actual chest pain. Lab work was remarkable for leukocytosis of 17.4, however patient afebrile, chest x-ray no acute finding, given the leukocytosis and cough will treat patient for pneumonia. Patient not requiring any supplemental oxygen. Trop negative, EKG nonischemic patient was given strict return precautions safe for discharge home with outpatient follow up Discharge Plan Departure Patient Disposition: Home Clinical Impression: Pneumonia Activity Restrictions/Additional Instructions: Please read the discharge instructions sheet carefully and bring all papers to all doctor follow-up visits, as it may contain information that your doctor may want to see. Disease processes change and evolve, if your symptoms worsen or if you develop any new symptoms that are concerning to you please return for evaluation. Your evaluation today does not show any evidence of any life-threatening/serious illnesses requiring admission to the hospital or surgery. Please follow-up with your doctor for re-evaluation in approximately 1 day. Seek immediate medical attention for any worrisome symptoms. Prescriptions: No Action lithium carbonate 150 mg capsule 300 mg PO HS Qty: 180 1RF Rx Instructions: Patient is taking 300 mg (2 caps) at bedtime (DME) Disbled Parking Permit See Rx Instructions .Route .MEDSUPPLY Qty: 1 0RF Rx Instructions: As directed ezetimibe 10 mg tablet 10 mg PO DAILY Qty: 90 3RF lamotrigine [Lamictal] 100 mg tablet 150 mg PO BEDTIME aspirin 81 mg tablet,delayed release (DR/EC) 81 mg PO DAILY Qty: 30 0RF celecoxib [Celebrex] 200 mg capsule 200 mg PO DAILY Qty: 90 2RF acetaminophen [Tylenol Extra Strength] 500 mg tablet 1,000 mg PO TID PRN (Reason: Pain (Scale Score 1-3)) omeprazole 20 mg capsule,delayed release(DR/EC) 20 mg PO BID duloxetine 30 mg capsule,delayed release(DR/EC) 30 mg PO BID Referrals: Chepe Voss MD [Primary Care Provider] - Stand Alone Forms: Patient Portal/API
[2024-04-03 13:15] LABS: INR 1.1 (0.9-1.3); Prothrombin Time 12.8 SECONDS (9.4-12.5)
[2024-04-03 13:19] LABS: Lactate (Lactic Acid) 1.5 mmol/L (0.7-2.1)
[2024-04-03] MEDS: BENZONATATE 100 MG CAPSULE PO (13:22)
[2024-04-03] MEDS: ALBUTEROL/IPRATROPIUM 3 ML AMPUL INH (13:35)
[2024-04-03 13:42] LABS: HEMOLYSIS < 15 (0-50); NT-proBNP (BNP-Adult 18+) 154 pg/mL (<450); Troponin I < 0.012 ng/mL (0.01-0.034)
[2024-04-03 14:39] LABS: Alanine Aminotransferase 17 IU/L (<50); Albumin 4.6 g/dL (3.5-5.0); Albumin Globulin Ratio 1.6 (1.0-2.8); Alkaline Phosphatase 56 U/L (38-126); Aspartate Aminotransferase 27 IU/L (17-59); BUN Creatinine Ratio 20.9 (6-22); Bilirubin Total 0.9 mg/dL (0.2-1.3); Blood Urea Nitrogen 19 mg/dL (9-20); Calcium 9.8 mg/dL (8.4-10.2); Carbon Dioxide 25 mmol/L (22-32); Chloride 103 mmol/L (98-107); Estimated Glomerular Filt Rate > 60 mL/min (>60); Globulin 2.8 g/dL (1.7-4.1); Glucose 135 mg/dL (80-110); Sodium 137 mmol/L (137-145); Total Protein 7.4 g/dL (6.3-8.2)
[2024-04-03] MEDS: DOXYCYCLINE HYCLATE 100 MG TABLET PO (17:00)
== END 2024-04-03 17:00 | disposition home or self-care (01) ==
PROVIDERS: Emergency Provider Student in an Organized Health Care Education/Training Program; Family Provider Internal Medicine; PCP Family Medicine
DX: J18.9 Pneumonia, unspecified organism (principal)
CPT/HCPCS: 36415; 71045; 80053; 83605; 83880; 84484; 85025; 85610; 93005; 93010; 94640; 99284

== ENCOUNTER → 2024-10-04 09:32 | Outpatient (CLI) | payer MEDICARE, SELFPAY ==
[2024-10-04 10:43] LABS: Add Manual Diff / Slide Review NO; Basophils Absolute Auto 0 /uL (0-100); Basophils Percent Auto 0.5 % (0-2); Eosinophils Absolute Auto 300 /uL (0-450); Eosinophils Percent Auto 3.9 % (2-4); Hematocrit 43.8 % (41-53); Hemoglobin 14.6 g/dL (13.5-17.5); Lymphocytes Absolute Auto 2200 /uL (1100-4500); Lymphocytes Percent Auto 24.9 % (25-40); Mean Corpuscular HGB Conc 33.3 % (30-36); Mean Corpuscular Hemoglobin 31.4 PG (26-34); Mean Corpuscular Volume 94.2 fL (80-100); Monocytes Absolute Auto 600 /uL (0-900); Monocytes Percent Auto 7.3 % (3-14); Neutrophils Absolute Auto 5600 /uL (1500-7000); Neutrophils Percent Auto 63.4 % (50-75); Platelet Count 307 X10^3/uL (150-400); Red Blood Cell Count 4.65 X10^6/uL (4.5-5.9); Red Cell Distribution Width 13.9 % (11.6-14.8); White Blood Cell Count 8.8 X10^3/uL (4.5-11.0)
[2024-10-04 10:55] LABS: BUN Creatinine Ratio 25.3 (6-22); Blood Urea Nitrogen 22 mg/dL (9-20); Calcium 10.2 mg/dL (8.4-10.2); Carbon Dioxide 24 mmol/L (22-32); Chloride 103 mmol/L (98-107); Cholesterol 208 mg/dL (140-199); Estimated Glomerular Filt Rate > 60 mL/min (>60); Glucose 120 mg/dL (80-110); HDL Cholesterol 72 mg/dL (40-60); HEMOLYSIS < 15 (0-50); LDL Cholesterol Calculated 105 mg/dL (<100); Potassium 4.4 mmol/L (3.4-5.1); Sodium 137 mmol/L (137-145); Triglycerides 154 mg/dL (35-150)
[2024-10-04 10:56] LABS: Hemoglobin A1C% w Est Avg Glu 5.3 % (4.0-6.0)
== END ==
PROVIDERS: Family Provider Internal Medicine; PCP Family Medicine; Referring Provider Family Medicine; Visit Provider Family Medicine
DX: Z01.818 Encounter for other preprocedural examination (principal); R73.9 Hyperglycemia, unspecified; E78.00 Pure hypercholesterolemia, unspecified; Z01.812 Encounter for preprocedural laboratory examination
CPT/HCPCS: 36415; 80048; 80061; 83036; 85025

== ENCOUNTER → 2024-10-07 12:09 | Outpatient (CLI) | payer MEDICARE, SELFPAY ==
[2024-10-07 15:22] LABS: Appearance Urine UA CLEAR; Bilirubin Urine UA NEGATIVE (NEGATIVE); Color Urine UA ORANGE; Glucose Urine UA NEGATIVE (Negative); Ketones Urine UA TRACE (NEGATIVE); Leukocyte Esterase Urine UA NEGATIVE (NEGATIVE); Nitrite Urine UA NEGATIVE (Negative); Occult Blood Urine UA NEGATIVE (Negative); Protein Urine UA NEGATIVE (Negative); Specific Gravity Urine UA 1.025 (1.000-1.035); pH Urine UA 5.5 (4.5-8.0)
[2024-10-07 15:32] LABS: Amorphous Sediment Urine 1+; Bacteria Urine None Seen; Culture Indicated Urine Cult Not Indicated; Mucus Urine 1+ (Negative); RBC Urine None Seen (0-5/HPF); Squamous Epithelial Cell Urine 0-1 /HPF (0-5/HPF); Urine Volume 10mL (spun); WBC Urine None Seen (0-5/HPF)
== END ==
PROVIDERS: Family Provider Internal Medicine; PCP Family Medicine; Referring Provider Family Medicine; Visit Provider Family Medicine
DX: N39.0 Urinary tract infection, site not specified (principal); Z01.818 Encounter for other preprocedural examination
CPT/HCPCS: 81001

== ENCOUNTER → 2024-10-31 10:25 | Outpatient (CLI) | payer MEDICARE, SELFPAY ==
--- NOTE | 2024-10-31 11:40 | EKG_ITS ---
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
[2024-10-31 12:31] LABS: Add Manual Diff / Slide Review NO; Basophils Absolute Auto 100 /uL (0-100); Basophils Percent Auto 0.7 % (0-2); Eosinophils Absolute Auto 200 /uL (0-450); Eosinophils Percent Auto 2.4 % (2-4); Hematocrit 43.5 % (41-53); Hemoglobin 14.8 g/dL (13.5-17.5); Lymphocytes Absolute Auto 1700 /uL (1100-4500); Lymphocytes Percent Auto 19.8 % (25-40); Mean Corpuscular HGB Conc 33.9 % (30-36); Mean Corpuscular Hemoglobin 31.8 PG (26-34); Mean Corpuscular Volume 93.8 fL (80-100); Monocytes Absolute Auto 700 /uL (0-900); Monocytes Percent Auto 8.7 % (3-14); Neutrophils Absolute Auto 5800 /uL (1500-7000); Neutrophils Percent Auto 68.4 % (50-75); Platelet Count 286 X10^3/uL (150-400); Red Blood Cell Count 4.64 X10^6/uL (4.5-5.9); Red Cell Distribution Width 13.9 % (11.6-14.8); White Blood Cell Count 8.4 X10^3/uL (4.5-11.0)
[2024-10-31 12:37] LABS: Hemoglobin A1C% w Est Avg Glu 5.4 % (4.0-6.0)
[2024-10-31 12:57] LABS: BUN Creatinine Ratio 27.7 (6-22); Blood Urea Nitrogen 26 mg/dL (9-20); Calcium 10.1 mg/dL (8.4-10.2); Carbon Dioxide 24 mmol/L (22-32); Chloride 104 mmol/L (98-107); Estimated Glomerular Filt Rate > 60 mL/min (>60); Glucose 92 mg/dL (70-99); HEMOLYSIS < 15 (0-50); Sodium 139 mmol/L (137-145)
== END ==
PROVIDERS: Family Provider Internal Medicine; PCP Family Medicine; Referring Provider Family Medicine; Visit Provider Psychiatry & Neurology Neurology
DX: Z01.818 Encounter for other preprocedural examination (principal); R73.9 Hyperglycemia, unspecified; Z01.812 Encounter for preprocedural laboratory examination; N39.0 Urinary tract infection, site not specified
CPT/HCPCS: 36415; 80048; 83036; 85025; 93005

== ENCOUNTER → 2025-04-14 13:56 | Outpatient (CLI) | payer MEDICARE, SELFPAY ==
[2024-12-18 17:17] VITALS: BMI 28.8
[2025-04-14 14:32] LABS: Add Manual Diff / Slide Review NO; Hematocrit 42.6 % (41-53); Hemoglobin 14.2 g/dL (13.5-17.5); Lymphocytes Absolute Auto 1800 /uL (1100-4500); Mean Corpuscular HGB Conc 33.3 % (30-36); Mean Corpuscular Hemoglobin 31.1 PG (26-34); Mean Corpuscular Volume 93.5 fL (80-100); Platelet Count 282 X10^3/uL (150-400)
[2025-04-14 14:40] LABS: Hemoglobin A1C% w Est Avg Glu 5.7 % (4.0-6.0)
[2025-04-14 14:56] LABS: Alanine Aminotransferase 15 IU/L (<50); Albumin 4.5 g/dL (3.5-5.0); Albumin Globulin Ratio 1.7 (1.0-2.8); Alkaline Phosphatase 63 U/L (38-126); Blood Urea Nitrogen 21 mg/dL (9-20); Calcium 9.9 mg/dL (8.4-10.2); Carbon Dioxide 25 mmol/L (22-32); Chloride 103 mmol/L (98-107); Estimated Glomerular Filt Rate > 60 mL/min (>60); Globulin 2.7 g/dL (1.7-4.1); Glucose 110 mg/dL (70-99); HEMOLYSIS < 15 (0-50); Potassium 3.9 mmol/L (3.4-5.1); Sodium 139 mmol/L (137-145); Total Protein 7.2 g/dL (6.3-8.2)
[2025-04-14 15:06] LABS: Free T4, Direct Thyroxine 1.23 ng/dL (0.78-2.19)
[2025-04-14 15:20] LABS: Thyroid Stimulating Hormone 2.39 uIU/mL (0.47-4.68)
[2025-04-14 15:39] LABS: Vitamin B12 247 pg/mL (239-931)
== END ==
PROVIDERS: PCP Internal Medicine; Referring Provider Internal Medicine; Visit Provider Internal Medicine
DX: E78.2 Mixed hyperlipidemia (principal); Z79.899 Other long term (current) drug therapy; G89.29 Other chronic pain; M54.12 Radiculopathy, cervical region; D64.9 Anemia, unspecified; E03.9 Hypothyroidism, unspecified
CPT/HCPCS: 36415; 80053; 82607; 83036; 84439; 84443; 85025; 85651; 86140

== ENCOUNTER → 2025-04-20 16:10 | Outpatient (CLI) | payer MEDICARE, SELFPAY ==
[2024-12-18 17:17] VITALS: BMI 28.8
--- NOTE | 2025-04-20 16:11 | DI.MRI.S_ITS ---
PROCEDURE: MR HEAD/BRAIN WO CON INDICATIONS: gait disorder, dizziness, neuropathy TECHNIQUE: Noncontrast axial T1 spin echo, axial T2 fast spin echo, sagittal and axial FLAIR, coronal T2 fast spin echo, axial gradient echo, axial diffusion and ADC through the brain. COMPARISON: [facility], MR, MR HEAD/BRAIN WO CON, 07/21/2021, 10:10. FINDINGS: Image quality: Excellent. CSF Spaces: Basal cisterns are patent. No extra-axial fluid collections. Ventricles are normal in size and shape. Brain: No intracranial masses or hemorrhage. Finch/white matter interface is normal. Brainstem appears normal. Diffusion-weighted images demonstrate no acute infarct. No chronic ischemic insults. Normal intravascular flow voids are present. Skull and face: Calvarium has normal marrow signal. Orbits appear normal. Sinuses: Sinuses and mastoids are clear. IMPRESSION: Mild age-appropriate atrophy and chronic ischemic change without acute infarct, hemorrhage or mass lesion Approved by: Iain Conteh M.D. on 04/20/2025 at 16:45
== END ==
PROVIDERS: PCP Internal Medicine; Referring Provider Internal Medicine; Visit Provider Internal Medicine
DX: R42 Dizziness and giddiness (principal); G62.9 Polyneuropathy, unspecified; R26.9 Unspecified abnormalities of gait and mobility
CPT/HCPCS: 70551

== ENCOUNTER → 2025-05-12 12:53 | Outpatient (CLI) | payer MEDICARE, SELFPAY ==
[2024-12-18 17:17] VITALS: BMI 28.8
[2025-05-12 13:49] LABS: Hemoglobin A1C% w Est Avg Glu 5.5 % (4.0-6.0)
[2025-05-12 14:05] LABS: Creatine Kinase 81 U/L (55-170)
== END ==
PROVIDERS: PCP Internal Medicine; Referring Provider Student in an Organized Health Care Education/Training Program; Visit Provider Student in an Organized Health Care Education/Training Program
DX: G62.9 Polyneuropathy, unspecified (principal); R29.2 Abnormal reflex; R29.6 Repeated falls; R53.1 Weakness
CPT/HCPCS: 36415; 82550; 83036; 85651; 86140; 86430

== ENCOUNTER → 2025-05-26 11:45 | Outpatient (CLI) | payer MEDICARE, SELFPAY ==
[2024-12-18 17:17] VITALS: BMI 28.8
--- NOTE | 2025-05-26 11:48 | DI.MRI.S_ITS ---
PROCEDURE: MR THORACIC SPINE WO/W CON INDICATIONS: REPEATED FALLS TECHNIQUE: Noncontrast sagittal T1 spin echo and T2 fast spin echo, sagittal STIR, axial T1 and T2 fast spin echo through the thoracic spine. After the administration of contrast, axial and sagittal T1 spin echo with fat saturation through the thoracic spine. COMPARISON: None. FINDINGS: Image quality: Motion degraded. Alignment and curvature: Dextroscoliotic curvature of the lower thoracic spine. Mild anterolisthesis of T1 on T2 and T2 on T3. Marrow: Multilevel degenerative endplate changes. Marrow is of normal overall signal. No acute vertebral body compression fractures. 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 Paraspinous soft tissues: No paravertebral masses or abnormal enhancement. Miscellaneous: Multilevel disc desiccation height loss with posterior disc bulges. Moderate to severe central canal stenosis T1-T2. Severe central canal stenosis T11-T12. Multilevel mild central canal stenosis at other levels. Severe bilateral neural foraminal stenosis at T11-T12. Severe left and moderate right neural foraminal stenosis at T12-L1. Moderate bilateral neural foraminal stenosis at T1-T2. Multilevel mild neural foraminal stenosis at other levels. IMPRESSION: Multilevel degenerative changes of the thoracic spine as described above. 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 Severe neural foraminal stenosis bilaterally at T11- T12 and on the left at T12-L1. Approved by: Henri Dinero M.D. on 05/26/2025 at 15:35
--- NOTE | 2025-05-26 11:48 | DI.MRI.S_ITS ---
PROCEDURE: MR LUMBAR SPINE WO/W CON INDICATIONS: REPEATED FALLS TECHNIQUE: Noncontrast sagittal T1 spin echo and T2 fast spin echo, sagittal STIR, axial T1 and T2 fast spin echo through the lumbar spine. In cases with scoliosis, additional coronal T2 fast spin echo may be performed. After the administration of contrast, sagittal and axial T1 spin echo with fat saturation through the lumbar spine. COMPARISON: None. FINDINGS: Image quality: Motion degraded. Alignment and curvature: Levo scoliotic curvature. Mild retrolisthesis of L1 on L2. Grade 1 anterolisthesis of L4 on L5. Grade 1 anterolisthesis of L5 on S1. Marrow: Multilevel degenerative endplate changes. Status post L4-5 posterior spinal fixation. Marrow is of normal overall signal. No acute vertebral body compression fractures. No suspicious marrow enhancement. Spinal cord: Conus medullaris terminates at the L1-L2 level. Visualized spinal cord demonstrates normal signal, without suspicious enhancement. Paraspinous soft tissues: No paravertebral masses or abnormal enhancement. T12-L1: Disc desiccation and height loss. Posterior disc bulge. Mild central canal stenosis. Severe left and moderate right neural foraminal stenosis. L1-L2: Disc desiccation is severe height loss. Diffuse disc bulge. Mild to moderate central canal stenosis. Motion limits evaluation. Severe right and moderate left neural foraminal stenosis. L2-L3: Disc desiccation and diffuse disc bulge. Facet arthropathy. Severe central canal stenosis. Severe bilateral neural foraminal stenosis. L3-L4: Disc desiccation is severe height loss. Diffuse disc bulge. Mild to moderate central canal stenosis. Severe right and mild left neural foraminal stenosis. L4-L5: Postoperative changes. Mild central canal stenosis. Severe bilateral neural foraminal stenosis. L5-S1: Disc desiccation and severe height loss. Diffuse disc bulge. Facet arthropathy. Moderate central canal stenosis. Moderate to severe bilateral neural foraminal stenosis. IMPRESSION: Severe degenerative changes of the lumbar spine as described above status post L4-5 posterior spinal fixation. Severe central canal stenosis at L2-L3. Multilevel severe neural foraminal stenosis. Approved by: Henri Dinero M.D. on 05/26/2025 at 15:43
--- NOTE | 2025-05-26 11:48 | DI.MRI.S_ITS ---
PROCEDURE: MR CERVICAL SPINE WO/W CON INDICATIONS: REPEATED FALLS TECHNIQUE: Noncontrast sagittal T1 spin echo and T2 fast spin echo, sagittal STIR, foraminal oblique sagittal T2 fast spin echo, axial gradient echo or T2 fast spin echo through the cervical spine. After the administration of contrast, axial and sagittal T1 spin echo with fat saturation through the cervical spine. COMPARISON: None. FINDINGS: Image quality: Motion degraded. Alignment and curvature: Reversal the normal cervical lordosis. Grade 1 anterolisthesis of C2 on C3, C3 on C4 and C7 on T1. Grade 1 retrolisthesis of C4 on C5 and C5 on C6. Marrow: Degenerative endplate changes. 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 Chronic height loss of the C4 vertebral body. Spinal cord: Increased T2 signal within the cord at C3-C4, may represent myelomalacia. No cerebellar tonsillar herniation. No abnormal intramedullary enhancement. Paraspinous soft tissues: No paravertebral masses or suspicious enhancement. C2-3: Disc desiccation and height loss. Posterior disc osteophyte complex. Facet and uncovertebral arthropathy. Mild central canal stenosis. Severe bilateral neural foraminal stenosis. C3-4: Disc desiccation and posterior disc osteophyte complex. Facet and uncovertebral arthropathy. Severe central canal stenosis. Severe bilateral neural foraminal stenosis. C4-5: Disc desiccation and severe height loss. Posterior disc osteophyte complex. Facet and uncovertebral arthropathy. Moderate central canal stenosis. Severe bilateral neural foraminal stenosis. C5-6: Ankylosis of the vertebral bodies. Posterior disc osteophyte complex. Facet and uncovertebral arthropathy. Moderate central canal stenosis. Severe bilateral neural foraminal stenosis. C6-7: Disc desiccation and severe height loss. Posterior disc osteophyte complex. Facet uncovertebral arthropathy. No central canal stenosis. Severe bilateral neural foraminal stenosis. C7-T1: Disc desiccation and severe height loss. Posterior disc osteophyte complex. Facet and uncovertebral arthropathy. Moderate central canal stenosis. Severe right and moderate left neural foraminal stenosis. IMPRESSION: Severe degenerative changes of the cervical spine as described above. Severe central canal stenosis at C3-C4 with compression of the cord and associated myelomalacia. Multilevel severe neural foraminal stenosis as above. Approved by: Henri Dinero M.D. on 05/26/2025 at 15:29
== END ==
LOC: MRI 11:46
PROVIDERS: PCP Internal Medicine; Referring Provider Student in an Organized Health Care Education/Training Program; Visit Provider Student in an Organized Health Care Education/Training Program
DX: M51.34 Other intervertebral disc degeneration, thoracic region (principal); M51.369 Other intervertebral disc degeneration, lumbar region without mention of lumbar back pain or lower extremity pain; M51.379 Other intervertebral disc degeneration, lumbosacral region without mention of lumbar back pain or lower extremity pain; M47.812 Spondylosis without myelopathy or radiculopathy, cervical region; M47.816 Spondylosis without myelopathy or radiculopathy, lumbar region; M47.817 Spondylosis without myelopathy or radiculopathy, lumbosacral region; M48.02 Spinal stenosis, cervical region; M43.22 Fusion of spine, cervical region; M48.04 Spinal stenosis, thoracic region; M48.05 Spinal stenosis, thoracolumbar region; M48.061 Spinal stenosis, lumbar region without neurogenic claudication; M48.07 Spinal stenosis, lumbosacral region; M25.78 Osteophyte, vertebrae; M43.14 Spondylolisthesis, thoracic region; M43.12 Spondylolisthesis, cervical region; M43.16 Spondylolisthesis, lumbar region; M43.17 Spondylolisthesis, lumbosacral region; M43.13 Spondylolisthesis, cervicothoracic region; G95.89 Other specified diseases of spinal cord; R29.2 Abnormal reflex; G62.9 Polyneuropathy, unspecified; R53.1 Weakness; R29.6 Repeated falls; Z98.1 Arthrodesis status
CPT/HCPCS: 72156; 72157; 72158; A9579